=== PATIENT | female | born 1990 | race Caucasian/White ===

== ENCOUNTER → 2023-04-06 08:45 | Outpatient (BNVA) | payer OTHER, SELFPAY | PROVIDERS: PCP Nurse Practitioner Family; Visit Provider Internal Medicine Endocrinology, Diabetes & Metabolism | DX: E10.65 Type 1 diabetes mellitus with hyperglycemia (principal) | CPT/HCPCS: 82947; 83036; 99202 ==

== ENCOUNTER → 2023-04-18 11:01 | Outpatient (BNVA) | payer OTHER, SELFPAY | PROVIDERS: PCP Nurse Practitioner Family; Visit Provider Dietitian, Registered | DX: E10.65 Type 1 diabetes mellitus with hyperglycemia (principal) | CPT/HCPCS: 97802 ==

== ENCOUNTER 2023-05-10 09:00 | Outpatient (AMB) | payer OTHER, SELFPAY ==
--- NOTE | 2023-05-10 09:55 | MHC.AMDMED ---
Intake Intake Visit Reasons: BANDAR Residential Support Specialist Required: No Accompanied by: Mother Allergies hydromorphone Allergy (Unknown, Verified 04/06/23 08:55) Unknown infliximab [From Remicade] Allergy (Unknown, Verified 04/06/23 08:55) Unknown sulfamethoxazole [From Bactrim] Allergy (Unknown, Verified 04/06/23 08:55) Unknown trimethoprim [From Bactrim] Allergy (Unknown, Verified 04/06/23 08:55) Unknown HPI Comprehensive Diabetes Asmnt Most Recent Diabetes Results: No Data to Display [facility] Medical History (Updated 04/06/23 @ 09:13 by Riley Lyon MD) Uncontrolled type 1 diabetes mellitus with hyperglycemia, with long-term current use of insulin Surgical History Hx of section Hx of resection of small bowel Family History Mother History of hypertension Hyperlipidemia Father History of hypertension Assessment & Plan Assessment & Plan (1) Uncontrolled type 1 diabetes mellitus with hyperglycemia, with long-term current use of insulin: Code(s): E10.65 - Type 1 diabetes mellitus with hyperglycemia Plan: Learning objectives: The patient was provided with verbal and written education on the following topics as outlined below. The patient met all learning objectives and was able to verbalize understanding and provide teach back of education topics discussed . The patient was provided with the opportunity to ask questions and all questions were answered. Patient Assessment Assess patient education level/literacy/barriers Patient questions/concerns, patient diagnosed with diabetes 2019, initially diagnosed with type 2 diabetes, started on metformin. Metformin was ineffective later patient diagnosed with BANDAR. patient is interested in obtaining insulin pump, at Education visit with her mother What is Diabetes? Pathophysiology How the body produces and uses insulin Identify type of DM Risk factors Signs of Diabetes Brief overview of Diabetes Management Monitoring blood sugar Following a meal plan Regular exercise Maintaining a healthy weight Taking medication as needed Members of the care team (PCP, RN, MA, RD, CDE, tool or die drawing checker) Blood glucose monitoring When/how often to test Target blood sugar ranges patient using Dexcom G6 to monitor glucose average glucose for the past 2 weeks 284 mg/dL patient above target 92% patient at target 8% patient below target 0% reviewed rules about testing for ketones, ketone instructions given. patient reports she has ketone strips at home but they may be sent message to Dr. Lyon to send prescription for ketone strips Reviewed the basic principles of carbohydrate counting.? Instructed patient on the importance of accurate calculation of the amount of carbs per meal Reviewed how to calculate mealtime bolus with insulin to carb ratio Reviewed how to calculate correction dose with insulin sensitivity factor patient is currently using insulin to carb ratio of 1-15 correction factor 1-60 correcting to 120 mg/dL downloaded and program bolus calc chloe on patient's smart phone Pt able to calculated needed insulin based on estimated carbohydrate content Pt demonstrated at visit how to calculate mealtime insulin bolus and correction bolus. Instructed patient that there may need to be adjustment to insulin to carb ratio and sensitivity factor based on blood glucose trends. Pt will review Carb Counting handout provided by [employer] Patient will fill out food/Carbohydrate/insulin dose log as instructed Patient Response to instructions: Comprehension of Instructions: Fair Readiness to make changes: Contemplation How confident they feel about making changes: Positive Patient Instructions: Ketone instructions DIABETES PROBLEMS HOMECARE INSTRUCTIONS? for High Blood Sugar and When to Test for Ketones Hyperglycemia is the technical term for high blood glucose (blood sugar). High blood sugar happens when the body has too little insulin or when the body can't use insulin properly. What causes hyperglycemia? A number of things can cause hyperglycemia: If you have type 1, you may not have given yourself enough insulin. ? If you have type 2, your body may have enough insulin, but it is not as effective as it should be. You ate more than planned or exercised less than planned. You have stress from an illness, such as a cold or flu. You have other stress, such as family conflicts or school or dating problems. How to lower your blood sugar level. ? Take medications as directed by physician. ? Drink extra water or noncaffeinated, nonsugared drinks to prevented hydration. ? Exercise if you are not sick However, if your blood sugar is above 250 mg/dl, check your urine for ketones. If you have ketones, do not exercise Exercising when ketones are present may make your blood sugar level go even higher. You'll need to work with your doctor to find the safest way for you to lower your blood sugar level. Regularly check blood sugar or urine for sugar and acetone during illness. Diabetic ketoacidosis (DKA) Is serious condition that can lead to diabetic coma (passing out for a long time) or even . When your cells don't get the glucose they need for energy, your body begins to burn fat for energy, which produces ketones. Ketones are chemicals that the body creates when it breaks down fat to use for energy. The body does this when it doesn?t have enough insulin to use glucose, the body?s normal source of energy. When ketones build up in the blood, they make it more acidic. They are a warning sign that your diabetes is out of control or that you are getting sick. Symptoms of Diabetic Ketoacidosis (DKA) ? DKA usually develops slowly. But when vomiting occurs, this life-threatening condition can develop in a few hours. Early symptoms include the following: ? Thirst or a very dry mouth ? Frequent urination ? High blood glucose (blood sugar) levels ? High levels of ketones in the urine ? Then, other symptoms appear: ? Constantly feeling tired ? Dry or flushed skin ? Nausea, vomiting, or abdominal pain ? (Vomiting can be caused by many illnesses, not just ketoacidosis. If vomiting continues for more than 2 hours, contact your health care provider.) ? Difficulty breathing ? Fruity odor on breath ? A hard time paying attention, or confusion When should you test for ketones? It is advisable to check for ketones under the following conditions when: Your blood glucose is higher than 250mg/dl. Feeling nauseated, throwing up, or have pains in your abdominal region. Have a cold or flu. Have general body fatigue. Feel thirsty or have a very dry mouth. Have flushed skin. Have a fruity breath or a hard time breathing. You feel perplexed or in fog. How to Test Urine for Ketones You can detect ketones with a simple urine test using a test strip, similar to a blood testing strip. Ask your health care provider when and how you should test for ketones. Many experts advise to check your urine for ketones when your blood glucose is more than 250 mg/dl. When you are ill (when you have a cold or the flu, for example), check for ketones every 4 to 6 hours. And check every 4 to 6 hours when your blood sugar is more than 240 mg/dl. Also, check for ketones when you have any symptoms of DKA. How to lower your blood sugar level. ? Take medications as directed by physician. ? Drink extra water or noncaffeinated, nonsugared drinks to prevented hydration. ? Exercise if you are not sick However, if your blood sugar is above 250 mg/dl, check your urine for ketones. If you have ketones, do not exercise Exercising when ketones are present may make your blood sugar level go even higher. You'll need to work with your doctor to find the safest way for you to lower your blood sugar level. Regularly check blood sugar or urine for sugar and acetone during illness Coding Level of Care Code Est Pt Level 1 (08836) Diagnoses Uncontrolled type 1 diabetes mellitus with hyperglycemia, with long-term current use of insulin E10.65
== END 2023-05-10 10:08 | disposition home or self-care (01) ==
PROVIDERS: PCP Nurse Practitioner Family; Visit Provider Registered Nurse Diabetes Educator
DX: E10.65 Type 1 diabetes mellitus with hyperglycemia (principal)

== ENCOUNTER → 2023-05-10 09:00 | Outpatient (BNVA) | payer OTHER, SELFPAY | PROVIDERS: PCP Nurse Practitioner Family; Visit Provider Registered Nurse Diabetes Educator | DX: E10.65 Type 1 diabetes mellitus with hyperglycemia (principal) | CPT/HCPCS: 99211 ==

== ENCOUNTER 2023-06-28 10:03 | Outpatient (AMB) | payer OTHER, SELFPAY ==
--- NOTE | 2023-06-28 10:38 | MHC.AMDMED ---
Intake Intake Visit Reasons: 60 min pump ed/confirmed Allergies hydromorphone Allergy (Unknown, Verified 04/06/23 08:55) Unknown infliximab [From Remicade] Allergy (Unknown, Verified 04/06/23 08:55) Unknown sulfamethoxazole [From Bactrim] Allergy (Unknown, Verified 04/06/23 08:55) Unknown trimethoprim [From Bactrim] Allergy (Unknown, Verified 04/06/23 08:55) Unknown HPI Comprehensive Diabetes Asmnt Most Recent Diabetes Results: No Data to Display [facility] Medical History (Updated 04/06/23 @ 09:13 by Riley Lyon MD) Uncontrolled type 1 diabetes mellitus with hyperglycemia, with long-term current use of insulin Surgical History Hx of section Hx of resection of small bowel Family History Mother History of hypertension Hyperlipidemia Father History of hypertension Assessment & Plan Assessment & Plan (1) Uncontrolled type 1 diabetes mellitus with hyperglycemia, with long-term current use of insulin: Code(s): E10.65 - Type 1 diabetes mellitus with hyperglycemia Plan: Pump Assessment: Type of DM: type 1 Dx at age: 29 Previous DKA: Current Insulin Rx: MDI Patient takes insulin as prescribed: yes Patient? checks BG with Dexcom G6 Downloaded meter today? yes Patient? reports glycemic control as: poor Most recent Hgb A1C: 10.1 Frequency of low BG: rarely Low BG treatment: Frequency of high BG:daily Does patient check Ketones? Reviewed ketone testing rules Has pt been on a pump in the past? no Reviewed insulin pump basics today with Patient. Explained pros and cons of insulin pumps. Showed pt various pumps, infusion sets, and cgms currently available. Reviewed need to wear pump 24/7 and need to change infusion set every 3 days. Also stressed importance of frequent BG checks, 4x daily minimum or use pump that is integrated with CGM.? Patient demonstrated motivation for continued insulin pump education and understands the need to complete education prior to starting insulin pump for best outcome. TDD 60 units Instructed patient to increase Tresiba to 30 units daily Decreased insulin to carb ratio from 1-15 to 1-12 Changed correction factor from 1-60 to 1-55 Changes made in patient's bolus calc chloe Patient Instructions: Call for pump training appt. Coding Level of Care Code Est Pt Level 1 (90918) Diagnoses Uncontrolled type 1 diabetes mellitus with hyperglycemia, with long-term current use of insulin E10.65
== END 2023-06-28 10:47 | disposition home or self-care (01) ==
PROVIDERS: PCP Nurse Practitioner Family; Visit Provider Registered Nurse Diabetes Educator
DX: E10.65 Type 1 diabetes mellitus with hyperglycemia (principal)

== ENCOUNTER → 2023-06-28 10:03 | Outpatient (BNVA) | payer OTHER, SELFPAY | PROVIDERS: PCP Nurse Practitioner Family; Visit Provider Registered Nurse Diabetes Educator | DX: Z46.81 Encounter for fitting and adjustment of insulin pump (principal); E10.65 Type 1 diabetes mellitus with hyperglycemia | CPT/HCPCS: 99211 ==

== ENCOUNTER 2023-07-04 09:36 | Outpatient (AMB) | payer OTHER, SELFPAY ==
[2023-07-04 09:37] VITALS: BP 134/72; PULSE 80; BMI 27.2
--- NOTE | 2023-07-04 09:37 | A.OFFVIS_ITS ---
Intake Vital Signs 07/04/23 09:37 Height 5 ft Weight 139 lb 5.314 oz BMI 27.2 BP 134/72 Blood Pressure Location Lt brachial Position Sitting Pulse 80 Pulse Source Pulse Oximeter Intake Visit Reasons: BANDAR/Confirmed Intake Note: Patient present today to follow up on Type 1 Diabetes BANDAR. Last Diabetic Eye exam: 11/2022 Last Podiatry Visit: None Random Glucose: 373 mg/dl HgA1C: 11.4% Motorboat Mechanic Required: No Accompanied by: Mother Allergies hydromorphone Allergy (Unknown, Verified 07/04/23 09:44) Unknown infliximab [From Remicade] Allergy (Unknown, Verified 07/04/23 09:44) Unknown sulfamethoxazole [From Bactrim] Allergy (Unknown, Verified 07/04/23 09:44) Unknown trimethoprim [From Bactrim] Allergy (Unknown, Verified 07/04/23 09:44) Unknown HPI HPI Comments History of Present Illness Details 33 YO F with is seen in consultation fo r T1DM at the request of PCP. Initially diagnosed with T1DM BANDAR in 02/2019 when presented with hyperglycemia . Was initially started on treatment with metformin . Current regimen: Tresiba 30 units Humalog 1:12 before meals Unfortunately, patient just place the Dexcom and is no information in the Dexcom download Most recent A1C: [], [down] from prior of []. Reports low sugars rarely . 1-2 /mo Treats lows with OJ . Checks sugar after to ensure it is rising. Follows the rule of 15's. Family history of autoimmunity . Sister has Graves DX Has eyes checked yearly, last eye exam 11/2022 , no retinopathy. has neuropathy,not sees podiatry. Denies nephropathy, Not on ION/ARB. Has HLD, on statin. Denies history of CAD. Had diabetes education. Diet/Carb counting: yes Denies prior episodes of DKA. Denies prior severe episodes of hypoglycemia requiring help or hospitalization. Labs: [facility] Medical History (Updated 04/06/23 @ 09:13 by Riley Lyon MD) Uncontrolled type 1 diabetes mellitus with hyperglycemia, with long-term current use of insulin Surgical History Hx of section Hx of resection of small bowel Family History Mother History of hypertension Hyperlipidemia Father History of hypertension Physical Exam Vital Signs: Last Vital Signs Pulse 80 07/04/23 09:37 BP 134/72 07/04/23 09:37 BMI result Body Mass Index 27.2 Absence of Cushingoid features. Absence of acromegalic features. Neck exam reveals nl size thyroid about 15 gms. No thyroid nodules palpable. No carotid bruits present. Lungs CTA. Heart S1 S2, Reg R/R. No M/R/ G. Skin exam reveals absence of vitiligo or acanthosis nigricans. Abdominal exam reveals Soft NT/ND with NA BS. No organomegaly present. Neck Other: . Extrem Other: Visual exam of foot performed. No ulcerations or open lesions. No onchomycosis, no callouses.Pulses 2 + distally Sensation intact to monofilament exam. Vibratory sensation sensed is intact with 128 Hz tuning fork Results AMB Hemoglobin A1c AMB Hemoglobin A1c 11.4 % Last Edit by Kimmy Connolly on 07/04/23 09:57 Results Reviewed Results Reviewed: 07/04/23 09:47 Glucose, Whole Blood Routine Laboratory Last Values Glucose (Clinic) 373 mg/dL (60-115) H* 07/04/23 09:47 Assessment & Plan Assessment & Plan (1) Uncontrolled type 1 diabetes mellitus with hyperglycemia, with long-term current use of insulin: Code(s): E10.65 - Type 1 diabetes mellitus with hyperglycemia Plan: Is a 33-year-old white female with reported history of LAD a type 1 management of basal-bolus insulin with glycemic control and no known microvascular or macrovascular complications. Plan is to have the patient bring the Dexcom with the follow-up appointments . Since there is no data points, cannot make any adjustments the insulin regimen. Will obtain basic metabolic panel, liver profile and microalbumin to creatinine ratio. . Patient to proceed to initiate the Omnipod 5 with Dexcom. Will check TSH and free T4 in light of recent weight gain Orders: Orders AMB Hemoglobin A1c Today E10.65 - Type 1 diabetes mellitus with hyperglycemia Free T4 (Free Thyroxine) Today E10.65 - Type 1 diabetes mellitus with hyperglycemia Thyroid Stimulating Hormone Today E10.65 - Type 1 diabetes mellitus with hyperglycemia Coding Level of Care Code Est Pt Level 4 (96564) Diagnoses Uncontrolled type 1 diabetes mellitus with hyperglycemia, with long-term current use of insulin E10.65
[2023-07-04 09:51] LABS: Glucose, Whole Blood 373 mg/dL (60-115)
== END 2023-07-04 10:16 | disposition home or self-care (01) ==
PROVIDERS: PCP Nurse Practitioner Family; Visit Provider Internal Medicine Endocrinology, Diabetes & Metabolism
DX: E10.65 Type 1 diabetes mellitus with hyperglycemia (principal)
CPT/HCPCS: 99214

== ENCOUNTER → 2023-07-04 09:36 | Outpatient (BNVA) | payer OTHER, SELFPAY | PROVIDERS: PCP Nurse Practitioner Family; Visit Provider Internal Medicine Endocrinology, Diabetes & Metabolism | DX: E10.65 Type 1 diabetes mellitus with hyperglycemia (principal); Z79.4 Long term (current) use of insulin | CPT/HCPCS: 82947; 83036; 99212 ==

== ENCOUNTER 2023-08-23 12:56 | Outpatient (AMB) | payer OTHER, SELFPAY ==
--- NOTE | 2023-08-23 14:08 | A.OFFVIS_ITS ---
Intake Intake Visit Reasons: pump trainig Assessment Analyst Required: No Accompanied by: Mother Allergies hydromorphone Allergy (Unknown, Verified 07/04/23 09:44) Unknown infliximab [From Remicade] Allergy (Unknown, Verified 07/04/23 09:44) Unknown sulfamethoxazole [From Bactrim] Allergy (Unknown, Verified 07/04/23 09:44) Unknown trimethoprim [From Bactrim] Allergy (Unknown, Verified 07/04/23 09:44) Unknown HPI Comprehensive Diabetes Asmnt Most Recent Diabetes Results: No Data to Display [facility] Medical History (Updated 04/06/23 @ 09:13 by Riley Lyon MD) Uncontrolled type 1 diabetes mellitus with hyperglycemia, with long-term current use of insulin Surgical History Hx of section Hx of resection of small bowel Family History Mother History of hypertension Hyperlipidemia Father History of hypertension Assessment & Plan Assessment & Plan (1) Uncontrolled type 1 diabetes mellitus with hyperglycemia, with long-term current use of insulin: Code(s): E10.65 - Type 1 diabetes mellitus with hyperglycemia Plan: Patient presents for pump training for Omnipod 5 pump and Dexcom G6 CGM train ing today. The following topics were reviewed today: -Pump therapy basic concepts: Basal/bolus, insulin to carb ratio, correction factor, insulin on board -Device settings: Bluetooth/mobile connection (if applicable), correct date and time, sound volume -CGM settings(if integrated system): CGM graft views and trend arrows, alerts and alarms, Start new sensor ??? High Alert: 400 mg/dl ??? Low Alert: 90 mg/dl ??? Insulin delivery settings Program insulin to carb ratio, correction factor, target blood glucose, suspend or resume insulin delivery, bolus limit and basal limit settings Instructed patient to only use room temperature insulin, how to load cartridge or fill pod, with insulin. Fill tubing and cannula (if applicable) Inserting infusion set or starting pod Troubleshooting after starting new pod or inserting new insulin set: Occlusion, adhesive tape sensitivity, redness Check BG 2 hours after site change Safety information: Importance of a backup plan, for manual injections, proper prescriptions and emergency supplies ketone strips, and rules for testing for ketones Patient was able to insert insulin set today without difficulty. Patient understands the basic concepts of pump therapy, how to give insulin for meals and snacks, how to troubleshoot for hyper and hypoglycemia. Setting verified by [employer] Basal rate(s) (units/hour) : 12 AM to 12 AM 1.0 units / hr Bolus setting Insulin Carbohydrate Ratio (s) 12 AM to 12 AM ? 1:12 Correction Factor / Sensitivity Factor 12 AM to 12 AM ??1:55 Active Insulin Time:? 4 hours Target(s): 12 AM to 12 AM ? 150 mg/dL correct above 150 mg/dL Patient will follow up with CDE as instructed Patient will contact CDE with questions or concerns, patient given IT number to support in any technical issues related to insulin pump Patient Instructions: patient will follow-up with supply cataloguer in 1 week Coding Level of Care Code Est Pt Level 1 (85010) Diagnoses Uncontrolled type 1 diabetes mellitus with hyperglycemia, with long-term current use of insulin E10.65
== END 2023-08-23 14:14 | disposition home or self-care (01) ==
PROVIDERS: PCP Nurse Practitioner Family; Visit Provider Registered Nurse Diabetes Educator
DX: E10.65 Type 1 diabetes mellitus with hyperglycemia (principal)

== ENCOUNTER → 2023-08-23 12:56 | Outpatient (BNVA) | payer OTHER, SELFPAY | PROVIDERS: PCP Nurse Practitioner Family; Visit Provider Registered Nurse Diabetes Educator | DX: Z46.81 Encounter for fitting and adjustment of insulin pump (principal); Z71.89 Other specified counseling; E10.65 Type 1 diabetes mellitus with hyperglycemia | CPT/HCPCS: 99211 ==

== ENCOUNTER 2023-09-18 15:31 | Outpatient (AMB) | payer OTHER, SELFPAY ==
--- NOTE | 2023-09-18 15:50 | MHC.AMDMED ---
Intake Intake Visit Reasons: 30/ Contact Manager Required: No Accompanied by: Self / Same As Patient Allergies hydromorphone Allergy (Unknown, Verified 07/04/23 09:44) Unknown infliximab [From Remicade] Allergy (Unknown, Verified 07/04/23 09:44) Unknown sulfamethoxazole [From Bactrim] Allergy (Unknown, Verified 07/04/23 09:44) Unknown trimethoprim [From Bactrim] Allergy (Unknown, Verified 07/04/23 09:44) Unknown HPI Comprehensive Diabetes Asmnt Most Recent Diabetes Results: No Data to Display [facility] Medical History (Updated 04/06/23 @ 09:13 by Riley Lyon MD) Uncontrolled type 1 diabetes mellitus with hyperglycemia, with long-term current use of insulin Surgical History Hx of section Hx of resection of small bowel Family History Mother History of hypertension Hyperlipidemia Father History of hypertension Assessment & Plan Assessment & Plan (1) Uncontrolled type 1 diabetes mellitus with hyperglycemia, with long-term current use of insulin: Code(s): E10.65 - Type 1 diabetes mellitus with hyperglycemia Plan: Patient presents for pump training for Omnipod 5 pump and Dexcom G6 CGM training today. The following topics were reviewed today: - insulin to carb ratio - target goal verses correction threshold ??? High Alert: 400 mg/dl ??? Low Alert: 90 mg/dl CGM data ??? patient above target 74% patient at target 26% patient below target 0% average glucose for the past 2 weeks 244 mg/dL patient in auto mode 72% manual mode 28% patient has been experiencing postprandial increased excursions after breakfast, patient's glucose levels and stays elevated throughout the day see changes to insulin to carb ratio at breakfast Troubleshooting after starting new pod or inserting new insulin set: Occlusion, adhesive tape sensitivity, redness Check BG 2 hours after site change Patient understands the basic concepts of pump therapy, how to give insulin for meals and snacks, how to troubleshoot for hyper and hypoglycemia. Setting verified by [employer] Basal rate(s) (units/hour) : 12 AM to 12 AM 1.0 units / hr Bolus setting Insulin Carbohydrate Ratio (s) 12 AM to 12 AM ? 1:12 New 12 AM to 6 AM 1:12 New 6 AM to 10 AM 1:10 New 10 AM to 12 AM 1:12 Correction Factor / Sensitivity Factor 12 AM to 12 AM ??1:55 Active Insulin Time:? 4 hours Target(s): 12 AM to 12 AM ? 150 mg/dL New 12 AM to 12 AM 130 mg/dL correct above 150 mg/dL Coding Level of Care Code Est Pt Level 1 (98841) Diagnoses Uncontrolled type 1 diabetes mellitus with hyperglycemia, with long-term current use of insulin E10.65
== END 2023-09-18 15:52 | disposition home or self-care (01) ==
PROVIDERS: PCP Nurse Practitioner Family; Visit Provider Registered Nurse Diabetes Educator
DX: E10.65 Type 1 diabetes mellitus with hyperglycemia (principal)

== ENCOUNTER → 2023-09-18 15:31 | Outpatient (BNVA) | payer OTHER, SELFPAY | PROVIDERS: PCP Nurse Practitioner Family; Visit Provider Registered Nurse Diabetes Educator | DX: Z46.81 Encounter for fitting and adjustment of insulin pump (principal); E10.65 Type 1 diabetes mellitus with hyperglycemia; Z79.4 Long term (current) use of insulin | CPT/HCPCS: 99211 ==

== ENCOUNTER 2023-10-09 12:45 | Outpatient (AMB) | payer OTHER, SELFPAY ==
--- NOTE | 2023-10-09 12:48 | MHC.OFFVIS ---
Intake Vital Signs 10/09/23 12:52 Height 5 ft Weight 141 lb 8.588 oz BMI 27.6 BP 124/84 Blood Pressure Location Rt brachial Position Sitting Pulse 97 Pulse Source Palpation Intake Visit Reasons: DM-CONFIRMED Intake Note: Patient present today to follow up on Type 1 BANDAR. Patient receives Omnipod 5 G6 supplies through: Pharmacy Patient receives DME through: Pharmacy Last Diabetic Eye exam: approx 6 months Last Podiatry Visit: Does not see a Cardiograph Operator, patient is requesting referral. Random Glucose: 215 mg/dl HgA1C: 10.3% Mason Liner Required: No Accompanied by: Self / Same As Patient Allergies hydromorphone Allergy (Unknown, Verified 10/09/23 12:53) Unknown infliximab [From Remicade] Allergy (Unknown, Verified 10/09/23 12:53) Unknown sulfamethoxazole [From Bactrim] Allergy (Unknown, Verified 10/09/23 12:53) Unknown trimethoprim [From Bactrim] Allergy (Unknown, Verified 10/09/23 12:53) Unknown Medication List - Last Reconciled 10/09/23 by Riley Lyon MD acetone (urine) test (Ketone Urine Test strips) As directed albuterol sulfate 90 mcg/actuation (Ventolin HFA) 1 puff inhalation QID PRN atorvastatin 10 mg PO DAILY blood sugar diagnostic (FreeStyle Lite Strips) As directed blood-glucose sensor (Dexcom G6 Sensor device) As directed blood-glucose transmitter (Dexcom G6 Transmitter device) As directed buprenorphine-naloxone 8-2 mg (Suboxone) 10 mg sublingual DAILY buspirone 15 mg PO TID duloxetine 30 mg PO DAILY duloxetine 60 mg PO DAILY ferrous sulfate 325 mg PO DAILY fluconazole 150 mg PO QWEEK glucagon 3 mg/actuation (Baqsimi) 3 mg intranasal insulin degludec (Tresiba FlexTouch U-100 insulin) units subcut insulin lispro (Humalog U-100 Insulin) Infuse up to 60 units today via insulin pump subcutaneously; insulin pump cart,auto,BT-cntr (Omnipod 5 G6 Intro Kit (Gen 5) subcutaneous cartridge with controller) As directed insulin pump cart,automated,BT (Omnipod 5 G6 Pods (Gen 5) subcutaneous cartridge) As directed change every 72 hours insulin syringe-needle U-100 (BD Insulin Syringe Ultra-Fine) As directed lancets (FreeStyle Lancets) As directed lidocaine 5% topical TID PRN loratadine 10 mg PO DAILY nicotine 1 patch topical DAILY norethindrone (contraceptive) 0.35 mg PO DAILY omeprazole 40 mg PO ondansetron HCl 4 mg PO Q8H PRN pen needle, diabetic (BD Ultra-Fine Short Pen Needle) As directed pregabalin 200 mg PO BID sumatriptan succinate 0 mg PO HPI HPI Comments History of Present Illness Details 33 YO F with is seen in consultation for T1DM at the request of PCP. Initially diagnosed with T1DM BANDAR in 02/2019 when presented with hyperglycemia . Was initially started on treatment with metformin . Current regimen: Omnipod 5 pump Basal rate(s) (units/hour) : 12 AM to 12 AM 1.0 units / hr Bolus setting Insulin Carbohydrate Ratio (s) 12 AM to 12 AM ? 1:12 New 12 AM to 6 AM 1:12 New 6 AM to 10 AM 1:10 New 10 AM to 12 AM 1:12 Correction Factor / Sensitivity Factor 12 AM to 12 AM ??1:55 Active Insulin Time:? 4 hours Target(s): 12 AM to 12 AM ? 150 mg/dL New 12 AM to 12 AM 130 mg/dL correct above 150 mg/dL Total daily dose of insulin is 56.8 units with 70% basal and 30% bolus. She is 76% in the automated mode a 24% manual. Total cause per day is 173.6 Dexcom download shows she is wearing the sensor 93% of the time. Average glucose is 233 with standard deviation of 82 and G mi of 8.9%. 31% range with 68% hyperglycemia and no hypoglycemia. Pattern shows elevated glucoses throughout the day with elevation in glucose after breakfast Most recent A1C: [], [down] from prior of []. Reports low sugars rarely Treats lows with OJ . Checks sugar after to ensure it is rising. Follows the rule of 15's. Family history of autoimmunity . Sister has Graves DX Has eyes checked yearly, last eye exam 11/2022 , no retinopathy. has neuropathy,not sees podiatry. Denies nephropathy, Not on ION/ARB. Has HLD, on statin. Denies history of CAD. Had diabetes education. Diet/Carb counting: yes Denies prior episodes of DKA. Denies prior severe episodes of hypoglycemia requiring help or hospitalization. Labs: [facility] Medical History (Updated 04/06/23 @ 09:13 by Riley Lyon MD) Uncontrolled type 1 diabetes mellitus with hyperglycemia, with long-term current use of insulin Surgical History Hx of section Hx of resection of small bowel Family History Mother History of hypertension Hyperlipidemia Father History of hypertension Physical Exam Vital Signs: Last Vital Signs Pulse 97 10/09/23 12:52 BP 124/84 10/09/23 12:52 BMI result Body Mass Index 27.6 Absence of Cushingoid features. Absence of acromegalic features. Neck exam reveals nl size thyroid about 15 gms. No thyroid nodules palpable. No carotid bruits present. Lungs CTA. Heart S1 S2, Reg R/R. No M/R/ G. Skin exam reveals absence of vitiligo or acanthosis nigricans. Abdominal exam reveals Soft NT/ND with NA BS. No organomegaly present. Neck Other: . Extrem Other: Visual exam of foot performed. No ulcerations or open lesions. No onchomycosis, no callouses.Pulses 2 + distally Sensation intact to monofilament exam. Vibratory sensation sensed is intact with 128 Hz tuning fork Results AMB Hemoglobin A1c AMB Hemoglobin A1c 10.3 % Last Edit by DAYSI Mcdonald on 10/09/23 13:11 Results Reviewed Results Reviewed: Laboratory Last Values Glucose (Clinic) 215 mg/dL (60-115) H 10/09/23 13:00 Assessment & Plan Assessment & Plan (1) Uncontrolled type 1 diabetes mellitus with hyperglycemia, with long-term current use of insulin: Code(s): E10.65 - Type 1 diabetes mellitus with hyperglycemia Plan: Is a 33-year-old white female with reported history of LAD a type 1 management of basal-bolus insulin with poor glycemic control and no known microvascular or macrovascular complications. Plan is to tighten the insulin: Carb at 10:00 to 1:10. May also need to tighten insulin: Carbohydrate at 06:00 to 1:9 and change goal glucose. However, will wait until patient sees ict educator make those latter changes Will have patient follow up with ict educator. Will have patient go for basic metabolic panel, lipid profile, microalbumin to creatinine ratio, TSH and free T4 Orders: Orders AMB Hemoglobin A1c Today E10.65 - Type 1 diabetes mellitus with hyperglycemia Coding Level of Care Code Est Pt Level 4 (29563) Diagnoses Uncontrolled type 1 diabetes mellitus with hyperglycemia, with long-term current use of insulin E10.65
[2023-10-09 12:52] VITALS: BP 124/84; PULSE 97; BMI 27.6
[2023-10-09 13:06] LABS: Glucose, Whole Blood 215 mg/dL (60-115)
== END 2023-10-09 13:20 | disposition home or self-care (01) ==
PROVIDERS: PCP Nurse Practitioner Family; Visit Provider Internal Medicine Endocrinology, Diabetes & Metabolism
DX: E10.65 Type 1 diabetes mellitus with hyperglycemia (principal)
CPT/HCPCS: 99214

== ENCOUNTER → 2023-10-09 12:45 | Outpatient (BNVA) | payer OTHER, SELFPAY | PROVIDERS: PCP Nurse Practitioner Family; Visit Provider Internal Medicine Endocrinology, Diabetes & Metabolism | DX: Z46.81 Encounter for fitting and adjustment of insulin pump (principal); E10.65 Type 1 diabetes mellitus with hyperglycemia; Z79.4 Long term (current) use of insulin | CPT/HCPCS: 82947; 83036; 99212 ==

== ENCOUNTER 2023-12-18 09:24 | Outpatient (AMB) | payer OTHER, SELFPAY ==
--- NOTE | 2023-12-18 09:31 | MHC.AMDMED ---
Intake Intake Visit Reasons: 30 min-confirmed Gutter Mouth Cutter Required: No Accompanied by: Self / Same As Patient Allergies hydromorphone Allergy (Unknown, Verified 10/09/23 12:53) Unknown infliximab [From Remicade] Allergy (Unknown, Verified 10/09/23 12:53) Unknown sulfamethoxazole [From Bactrim] Allergy (Unknown, Verified 10/09/23 12:53) Unknown trimethoprim [From Bactrim] Allergy (Unknown, Verified 10/09/23 12:53) Unknown HPI Comprehensive Diabetes Asmnt Most Recent Diabetes Results: No Data to Display [facility] Medical History (Updated 04/06/23 @ 09:13 by Riley Lyon MD) Uncontrolled type 1 diabetes mellitus with hyperglycemia, with long-term current use of insulin Surgical History Hx of section Hx of resection of small bowel Family History Mother History of hypertension Hyperlipidemia Father History of hypertension Assessment & Plan Assessment & Plan (1) Uncontrolled type 1 diabetes mellitus with hyperglycemia, with long-term current use of insulin: Code(s): E10.65 - Type 1 diabetes mellitus with hyperglycemia Plan: Patient presents for pump training for Omnipod 5 pump and Dexcom G6 CGM training today. The following topics were reviewed today: - insulin to carb ratio - target goal verses correction threshold ??? High Alert: 400 mg/dl ??? Low Alert: 90 mg/dl CGM data ??? patient above target 60% patient at target 40% patient below target 0% average glucose for the past 2 weeks 211 mg/dL patient in auto mode 94% manual mode 6% Although patient's glucose control has improved patient is still ranging above target. Patient also reports that on November 30 while at work her pods had and she did not have insulin, to start new pods with the time she got home approximately 4 hours later she was experiencing chest pain and nausea. Patient was taken to [facility] ED by EMS where she was told she was in DKA. Reviewed with patient the importance always having active Omnipod, she is no longer using long-acting insulin so this puts her at greater risk for DKA. Patient reports she does have an ketone strips at home and is now checking for ketones when glucose is elevated. Patient will be seeing Dr. Lyon in January 2024, patient did not bring PDM to today's visit but instructed patient to change glucose targets 110 for target range, 120 mg/dL for correction threshold Troubleshooting after starting new pod or inserting new insulin set: Occlusion, adhesive tape sensitivity, redness Check BG 2 hours after site change Patient understands the basic concepts of pump therapy, how to give insulin for meals and snacks, how to troubleshoot for hyper and hypoglycemia. Setting verified by [facility] Basal rate(s) (units/hour) : 12 AM to 12 AM 1.0 units / hr Bolus setting Insulin Carbohydrate Ratio (s) 12 AM to 6 AM 1:12 6 AM to 10 AM 1:10 10 AM to 12 AM 1:10 Correction Factor / Sensitivity Factor 12 AM to 12 AM ??1:55 Active Insulin Time:? 4 hours Target(s): 12 AM to 12 AM ? 130 mg/dL New 12 AM to 12 AM 110mg/dL correct above 120 mg/dL Patient Instructions: DIABETES PROBLEMS [facility] INSTRUCTIONS? for High Blood Sugar and When to Test for Ketones Hyperglycemia is the technical term for high blood glucose (blood sugar). High blood sugar happens when the body has too little insulin or when the body can't use insulin properly. What causes hyperglycemia? A number of things can cause hyperglycemia: If you have type 1, you may not have given yourself enough insulin. ? If you have type 2, your body may have enough insulin, but it is not as effective as it should be. You ate more than planned or exercised less than planned. You have stress from an illness, such as a cold or flu. You have other stress, such as family conflicts or school or dating problems. How to lower your blood sugar level. ? Take medications as directed by physician. ? Drink extra water or noncaffeinated, nonsugared drinks to prevented hydration. ? Exercise if you are not sick However, if your blood sugar is above 250 mg/dl, check your urine for ketones. If you have ketones, do not exercise Exercising when ketones are present may make your blood sugar level go even higher. You'll need to work with your doctor to find the safest way for you to lower your blood sugar level. Regularly check blood sugar or urine for sugar and acetone during illness. Diabetic ketoacidosis (DKA) Is serious condition that can lead to diabetic coma (passing out for a long time) or even . When your cells don't get the glucose they need for energy, your body begins to burn fat for energy, which produces ketones. Ketones are chemicals that the body creates when it breaks down fat to use for energy. The body does this when it doesn?t have enough insulin to use glucose, the body?s normal source of energy. When ketones build up in the blood, they make it more acidic. They are a warning sign that your diabetes is out of control or that you are getting sick. Symptoms of Diabetic Ketoacidosis (DKA) ? DKA usually develops slowly. But when vomiting occurs, this life-threatening condition can develop in a few hours. Early symptoms include the following: ? Thirst or a very dry mouth ? Frequent urination ? High blood glucose (blood sugar) levels ? High levels of ketones in the urine ? Then, other symptoms appear: ? Constantly feeling tired ? Dry or flushed skin ? Nausea, vomiting, or abdominal pain ? (Vomiting can be caused by many illnesses, not just ketoacidosis. If vomiting continues for more than 2 hours, contact your health care provider.) ? Difficulty breathing ? Fruity odor on breath ? A hard time paying attention, or confusion When should you test for ketones? It is advisable to check for ketones under the following conditions when: Your blood glucose is higher than 250mg/dl. Feeling nauseated, throwing up, or have pains in your abdominal region. Have a cold or flu. Have general body fatigue. Feel thirsty or have a very dry mouth. Have flushed skin. Have a fruity breath or a hard time breathing. You feel perplexed or in fog. How to Test Urine for Ketones You can detect ketones with a simple urine test using a test strip, similar to a blood testing strip. Ask your health care provider when and how you should test for ketones. Many experts advise to check your urine for ketones when your blood glucose is more than 250 mg/dl. When you are ill (when you have a cold or the flu, for example), check for ketones every 4 to 6 hours. And check every 4 to 6 hours when your blood sugar is more than 250 mg/dl. Also, check for ketones when you have any symptoms of DKA. How to lower your blood sugar level. ? Take medications as directed by physician. ? Drink extra water or noncaffeinated, nonsugared drinks to prevented hydration. ? Exercise if you are not sick However, if your blood sugar is above 250 mg/dl, check your urine for ketones. If you have ketones, do not exercise Exercising when ketones are present may make your blood sugar level go even higher. You'll need to work with your doctor to find the safest way for you to lower your blood sugar level. Regularly check blood sugar or urine for sugar and acetone during illness Patient will follow-up with Diabetes Education nurse in 2 months Coding Level of Care Code Est Pt Level 1 (11100) Diagnoses Uncontrolled type 1 diabetes mellitus with hyperglycemia, with long-term current use of insulin E10.65
== END 2023-12-18 09:51 | disposition home or self-care (01) ==
PROVIDERS: PCP Nurse Practitioner Family; Visit Provider Registered Nurse Diabetes Educator
DX: E10.65 Type 1 diabetes mellitus with hyperglycemia (principal)

== ENCOUNTER → 2023-12-18 09:24 | Outpatient (BNVA) | payer OTHER, SELFPAY | PROVIDERS: PCP Nurse Practitioner Family; Visit Provider Registered Nurse Diabetes Educator | DX: Z46.81 Encounter for fitting and adjustment of insulin pump (principal); E10.65 Type 1 diabetes mellitus with hyperglycemia; Z79.4 Long term (current) use of insulin | CPT/HCPCS: 99211 ==

== ENCOUNTER 2024-01-15 07:13 | Outpatient (REF) | payer OTHER, SELFPAY ==
[2024-01-15 13:23] LABS: Anion Gap 10 (12-20); Blood Urea Nitrogen 9 mg/dL (9-16); Calcium 8.9 mg/dL (8.4-10.2); Carbon Dioxide 26 mmol/L (22-29); Chloride 105 mmol/L (96-108); Cholesterol 179 mg/dL (<200); Estimated Glomerular Filt Rate > 60; Glucose Random 198 mg/dL (60-115); HDL Cholesterol 31 mg/dL (>40); LDL Cholesterol Calculated 107 mg/dL (<100); Potassium 4.1 mmol/L (3.3-5.1); Sodium 137 mmol/L (135-145); Triglycerides 209 mg/dL (<150)
[2024-01-15 13:39] LABS: Thyroid Stimulating Hormone 1.32 uIU/mL (0.32-4.0)
[2024-01-15 14:00] LABS: Creatinine Urine 123.19 mg/dL; Microalbum/Creatinine Ratio Ur 11.3 ug/mg cr (<30)
== END 2024-01-15 07:14 | disposition home or self-care (01) ==
LOC: HO.HMGCLDS 07:13
PROVIDERS: PCP Internal Medicine; Visit Provider Internal Medicine Endocrinology, Diabetes & Metabolism
DX: E10.65 Type 1 diabetes mellitus with hyperglycemia (principal); Z79.4 Long term (current) use of insulin; Z79.899 Other long term (current) drug therapy
CPT/HCPCS: 36415; 80048; 80061; 82043; 82570; 82947; 83036; 84439; 84443; 99212

== ENCOUNTER 2024-01-15 12:45 | Outpatient (AMB) | payer OTHER, SELFPAY ==
[2024-01-15 12:58] VITALS: BP 116/70; PULSE 80; BMI 26.6
--- NOTE | 2024-01-15 12:58 | A.OFFVIS_ITS ---
Intake Vital Signs 01/15/24 12:58 Height 5 ft Weight 136 lb 7.458 oz BMI 26.6 BP 116/70 Blood Pressure Location Lt brachial Position Sitting Pulse 80 Pulse Source Pulse Oximeter Intake Visit Reasons: f/u Type 1 DM-confirmed Intake Note: Patient present today to follow up on Type 1 Diabetes Mellitus. Patient receives DME supplies through: Pharmacy Patient receives insulin pump supplies through: Pharmacy Last Diabetic Eye exam: 06/2023 Last Podiatry Visit: 06/2023 Random Glucose: 184 mg/dl HgA1C: 8.3% Manager Management Required: No Accompanied by: Self / Same As Patient Allergies hydromorphone Allergy (Unknown, Verified 01/15/24 13:03) Unknown infliximab [From Remicade] Allergy (Unknown, Verified 01/15/24 13:03) Unknown sulfamethoxazole [From Bactrim] Allergy (Unknown, Verified 01/15/24 13:03) Unknown trimethoprim [From Bactrim] Allergy (Unknown, Verified 01/15/24 13:03) Unknown Medication List - Last Reconciled 01/15/24 by Riley Lyon MD acetone (urine) test (Ketone Urine Test strips) As directed albuterol sulfate 90 mcg/actuation (Ventolin HFA) 1 puff inhalation QID PRN atorvastatin 10 mg PO DAILY blood sugar diagnostic (FreeStyle Lite Strips) As directed blood-glucose sensor (Dexcom G6 Sensor device) As directed blood-glucose transmitter (Dexcom G6 Transmitter device) As directed buprenorphine-naloxone 8-2 mg (Suboxone) 10 mg sublingual DAILY buspirone 15 mg PO TID duloxetine 30 mg PO DAILY duloxetine 60 mg PO DAILY ferrous sulfate 325 mg PO DAILY fluconazole 150 mg PO QWEEK glucagon 3 mg/actuation (Baqsimi) 3 mg intranasal insulin degludec (Tresiba FlexTouch U-100 insulin) units subcut insulin lispro (Humalog U-100 Insulin) Infuse up to 60 units today via insulin pump subcutaneously; insulin pump cart,auto,BT-cntr (Omnipod 5 G6 Intro Kit (Gen 5) subcutaneous cartridge with controller) As directed insulin pump cart,automated,BT (Omnipod 5 G6 Pods (Gen 5) subcutaneous cartridge) As directed change every 72 hours insulin syringe-needle U-100 (BD Insulin Syringe Ultra-Fine) As directed lancets (FreeStyle Lancets) As directed lidocaine 5% topical TID PRN loratadine 10 mg PO DAILY nicotine 1 patch topical DAILY norethindrone (contraceptive) 0.35 mg PO DAILY omeprazole 40 mg PO ondansetron HCl 4 mg PO Q8H PRN pen needle, diabetic (BD Ultra-Fine Short Pen Needle) As directed pregabalin 200 mg PO BID sumatriptan succinate 0 mg PO HPI HPI Comments History of Present Illness Details 33 YO F with is seen in consultation fo r T1DM at the request of PCP. Initially diagnosed with T1DM BANDAR in 02/2019 when presented with hyperglycemia . Was initially started on treatment with metformin . Current regimen: Omnipod 5 pump Basal rate(s) (units/hour) : 12 AM to 12 AM 1.0 units / hr Bolus setting Insulin Carbohydrate Ratio (s) 12 AM to 6 AM 1:12 6 AM to 10 AM 1:10 10 AM to 12 AM 1:10 Correction Factor / Sensitivity Factor 12 AM to 12 AM ??1:55 Active Insulin Time:? 4 hours Target(s): 12 AM to 12 AM ? 130 mg/dL New 12 AM to 12 AM 110mg/dL correct above 120 mg/dL Patient Instructions: Total daily dose of insulin is 43.5 units with 81% basal and 19% bolus. She is % in the automated mode 94 % manual. Total carbs per day is 93.8 Dexcom download shows she is wearing the sensor 93% of the time. Average glucose is 182 with standard deviation of 56 and G mi of 7.7%. 53% range with 46% hyperglycemia and <1 % hypoglycemia. Pattern shows elevated glucoses e after breakfast Most recent A1C: [], [down] from prior of []. Reports low sugars rarely Treats lows with OJ . Checks sugar after to ensure it is rising. Follows the rule of 15's. Family history of autoimmunity . Sister has Graves DX Has eyes checked yearly, last eye exam 07/2023 , no retinopathy. has neuropathy,not sees podiatry. Denies nephropathy, Not on ION/ARB. Has HLD, on statin. Denies history of CAD. Had diabetes education. Diet/Carb counting: yes Denies prior episodes of DKA. Denies prior severe episodes of hypoglycemia requiring help or hospitalization. Labs: [facility] Medical History (Updated 04/06/23 @ 09:13 by Riley Lyon MD) Uncontrolled type 1 diabetes mellitus with hyperglycemia, with long-term current use of insulin Surgical History Hx of section Hx of resection of small bowel Family History Mother History of hypertension Hyperlipidemia Father History of hypertension Physical Exam Vital Signs: Last Vital Signs Pulse 80 01/15/24 12:58 BP 116/70 01/15/24 12:58 BMI result Body Mass Index 26.6 Absence of Cushingoid features. Absence of acromegalic features. Neck exam reveals nl size thyroid about 15 gms. No thyroid nodules palpable. No carotid bruits present. Lungs CTA. Heart S1 S2, Reg R/R. No M/R/ G. Skin exam reveals absence of vitiligo or acanthosis nigricans. Abdominal exam reveals Soft NT/ND with NA BS. No organomegaly present. Neck Other: . Extrem Other: Visual exam of foot performed. No ulcerations or open lesions. No onchomycosis, no callouses.Pulses 2 + distally Sensation intact to monofilament exam. Vibratory sensation sensed is intact with 128 Hz tuning fork Results AMB Hemoglobin A1c AMB Hemoglobin A1c 8.3 % Last Edit by DAYSI Douglas on 01/15/24 13:18 Results Reviewed Results Reviewed: Laboratory Last Values Glucose (Clinic) 184 mg/dL (60-115) H 01/15/24 13:05 Assessment & Plan Assessment & Plan (1) Uncontrolled type 1 diabetes mellitus with hyperglycemia, with long-term current use of insulin: Code(s): E10.65 - Type 1 diabetes mellitus with hyperglycemia Plan: Is a 33-year-old white female with reported history of LAD a type 1 management of basal-bolus insulin with poor glycemic control and no known microvascular or macrovascular complications. Plan is to tighten insulin: carbohydrate to 1:9 at 6 AM Will check basic metabolic panel, lipid profile, microalbumin to creatinine ratio, TSH and free T4 when available Orders: Orders AMB Hemoglobin A1c Today E10.65 - Type 1 diabetes mellitus with hyperglycemia, Z13.9 - Encounter for screening, unspecified Coding Level of Care Code Est Pt Level 4 (98833) Diagnoses Uncontrolled type 1 diabetes mellitus with hyperglycemia, with long-term current use of insulin E10.65
[2024-01-15 13:09] LABS: Glucose, Whole Blood 184 mg/dL (60-115)
== END 2024-01-15 13:21 | disposition home or self-care (01) ==
PROVIDERS: PCP Nurse Practitioner Family; Visit Provider Internal Medicine Endocrinology, Diabetes & Metabolism
DX: Z13.9 Encounter for screening, unspecified (principal); E10.65 Type 1 diabetes mellitus with hyperglycemia
CPT/HCPCS: 99214

== ENCOUNTER 2024-02-18 10:03 | Outpatient (AMB) | payer OTHER, SELFPAY ==
--- NOTE | 2024-02-18 10:23 | MHC.AMDMED ---
Intake Intake Visit Reasons: DM 30 min Box Cutter Required: No Accompanied by: Self / Same As Patient Allergies hydromorphone Allergy (Unknown, Verified 01/15/24 13:03) Unknown infliximab [From Remicade] Allergy (Unknown, Verified 01/15/24 13:03) Unknown sulfamethoxazole [From Bactrim] Allergy (Unknown, Verified 01/15/24 13:03) Unknown trimethoprim [From Bactrim] Allergy (Unknown, Verified 01/15/24 13:03) Unknown HPI Comprehensive Diabetes Asmnt Most Recent Diabetes Results: Microalb/Creat Ratio 11.3 ug/mg cr (<30) 01/15/24 Cholesterol 179 mg/dL (<200) 01/15/24 HDL Cholesterol 31 mg/dL (>40) L 01/15/24 Triglycerides 209 mg/dL (<150) H 01/15/24 Creatinine 0.59 mg/dL (0.5-1.4) 01/15/24 Blood Urea Nitrogen 9 mg/dL (9-16) 01/15/24 Sodium 137 mmol/L (135-145) 01/15/24 Potassium 4.1 mmol/L (3.3-5.1) 01/15/24 Chloride 105 mmol/L (96-108) 01/15/24 Carbon Dioxide 26 mmol/L (22-29) 01/15/24 Calcium 8.9 mg/dL (8.4-10.2) 01/15/24 [facility] Medical History (Updated 04/06/23 @ 09:13 by Riley Lyon MD) Uncontrolled type 1 diabetes mellitus with hyperglycemia, with long-term current use of insulin Surgical History Hx of section Hx of resection of small bowel Family History Mother History of hypertension Hyperlipidemia Father History of hypertension Assessment & Plan Assessment & Plan (1) Uncontrolled type 1 diabetes mellitus with hyperglycemia, with long-term current use of insulin: Code(s): E10.65 - Type 1 diabetes mellitus with hyperglycemia Plan: Patient presents for pump training for Omnipod 5 pump and Dexcom G6 CGM training today. The following topics were reviewed today: - insulin to carb ratio - target goal verses correction threshold ??? High Alert: 400 mg/dl ??? Low Alert: 90 mg/dl CGM data ??? patient above target 51% patient at target 49% patient below target 0% average glucose for the past 2 weeks 192 mg/dL patient in auto mode 87% manual mode 13% Pt's A1c went down from 10% over 2022, to 8.3 %, in December 2023 Pt having postprandial hypers after breakfast. adjusted I:CHO and correction threshold Troubleshooting after starting new pod or inserting new insulin set: Occlusion, adhesive tape sensitivity, redness Check BG 2 hours after site change Patient understands the basic concepts of pump therapy, how to give insulin for meals and snacks, how to troubleshoot for hyper and hypoglycemia. Setting verified by [facility] Basal rate(s) (units/hour) : 12 AM to 12 AM 1.0 units / hr Bolus setting Insulin Carbohydrate Ratio (s) 12 AM to 6 AM 1:12 New 6 AM to 12 PM 1:8 12:AM to 12 AM 1:9 Correction Factor / Sensitivity Factor 12 AM to 12 AM ??1:55 Active Insulin Time:? 4 hours Target(s): 12 AM to 12 AM 110mg/dL New correct above 110 mg/dL Coding Level of Care Code Est Pt Level 1 (03789) Diagnoses Uncontrolled type 1 diabetes mellitus with hyperglycemia, with long-term current use of insulin E10.65
== END 2024-02-18 10:26 | disposition home or self-care (01) ==
PROVIDERS: PCP Nurse Practitioner Family; Visit Provider Registered Nurse Diabetes Educator
DX: E10.65 Type 1 diabetes mellitus with hyperglycemia (principal)

== ENCOUNTER → 2024-02-18 10:03 | Outpatient (BNVA) | payer OTHER, SELFPAY | PROVIDERS: PCP Nurse Practitioner Family; Visit Provider Registered Nurse Diabetes Educator | DX: E10.65 Type 1 diabetes mellitus with hyperglycemia (principal); Z96.41 Presence of insulin pump (external) (internal); Z79.4 Long term (current) use of insulin; Z46.81 Encounter for fitting and adjustment of insulin pump | CPT/HCPCS: 99211 ==

== ENCOUNTER 2024-05-20 09:47 | Outpatient (AMB) | payer OTHER, SELFPAY ==
--- NOTE | 2024-05-20 10:16 | A.OFFVIS_ITS ---
Intake Intake Visit Reasons: DM Heat Treater Head Required: No Accompanied by: Self / Same As Patient Allergies hydromorphone Allergy (Unknown, Verified 01/15/24 13:03) Unknown infliximab [From Remicade] Allergy (Unknown, Verified 01/15/24 13:03) Unknown sulfamethoxazole [From Bactrim] Allergy (Unknown, Verified 01/15/24 13:03) Unknown trimethoprim [From Bactrim] Allergy (Unknown, Verified 01/15/24 13:03) Unknown HPI Comprehensive Diabetes Asmnt Most Recent Diabetes Results: Microalb/Creat Ratio 11.3 ug/mg cr (<30) 01/15/24 Cholesterol 179 mg/dL (<200) 01/15/24 HDL Cholesterol 31 mg/dL (>40) L 01/15/24 Triglycerides 209 mg/dL (<150) H 01/15/24 Creatinine 0.59 mg/dL (0.5-1.4) 01/15/24 Blood Urea Nitrogen 9 mg/dL (9-16) 01/15/24 Sodium 137 mmol/L (135-145) 01/15/24 Potassium 4.1 mmol/L (3.3-5.1) 01/15/24 Chloride 105 mmol/L (96-108) 01/15/24 Carbon Dioxide 26 mmol/L (22-29) 01/15/24 Calcium 8.9 mg/dL (8.4-10.2) 01/15/24 [facility] Medical History (Updated 04/06/23 @ 09:13 by Riley Lyon MD) Uncontrolled type 1 diabetes mellitus with hyperglycemia, with long-term current use of insulin Surgical History Hx of section Hx of resection of small bowel Family History Mother History of hypertension Hyperlipidemia Father History of hypertension Assessment & Plan Assessment & Plan (1) Uncontrolled type 1 diabetes mellitus with hyperglycemia, with long-term current use of insulin: Code(s): E10.65 - Type 1 diabetes mellitus with hyperglycemia Plan: Patient presents for pump training for Omnipod 5 pump and Dexcom G6 CGM training today. The following topics were reviewed today: - insulin to carb ratio - target goal verses correction threshold ??? High Alert: 400 mg/dl ??? Low Alert: 90 mg/dl CGM data ??? patient above target 47% patient at target 53% patient below target 0% average glucose for the past 2 weeks 187 mg/dL patient in auto mode 70% manual mode 30% Last A1c 8.3 %, in December 2023, patient missed appointment with Dr. Lyon in April, instructed patient to reschedule appointment at today's visit Patient reports having difficulty getting sensor to connect to telecommunications engineer, patient had turned on Dexcom telecommunications engineer because her phone had not been working well. Instructed patient to turn off Dexcom telecommunications engineer causes could interfere with connection with the Omnipod telecommunications engineer. In addition patient had recently changed Dexcom transmitter, patient given new transmitter in case it is transmitter issue Instructed patient if she is still having difficulty after turning off Dexcom telecommunications engineer and changing out Dexcom transmitter to contact Omnipod regarding replacement pods Instructed patient to try and make manual correction 2 hours after meals if glucose levels are still elevated Patient mentioned that she had recently diagnosed with gastroparesis. Discussed with patient how gastroparesis can interfere with the emptying of the stomach, which can cause delay in glucose rise after meals Troubleshooting after starting new pod or inserting new insulin set: Occlusion, adhesive tape sensitivity, redness Check BG 2 hours after site change Patient understands the basic concepts of pump therapy, how to give insulin for meals and snacks, how to troubleshoot for hyper and hypoglycemia. Setting verified by [facility], patient declined to make changes pump settings at today's visit Basal rate(s) (units/hour) : 12 AM to 12 AM 1.0 units / hr Bolus setting Insulin Carbohydrate Ratio (s) 12 AM to 6 AM 1:12 6 AM to 12 PM 1:8 12:AM to 12 AM 1:9 Correction Factor / Sensitivity Factor 12 AM to 12 AM ??1:55 Active Insulin Time:? 4 hours Target(s): 12 AM to 12 AM 110mg/dL correct above 110 mg/dL Patient Instructions: Patient will follow-up with clinical trial educator in 5 months Coding Level of Care Code Est Pt Level 1 (72429) Diagnoses Uncontrolled type 1 diabetes mellitus with hyperglycemia, with long-term current use of insulin E10.65
== END 2024-05-20 10:18 | disposition home or self-care (01) ==
PROVIDERS: PCP Nurse Practitioner Family; Visit Provider Registered Nurse Diabetes Educator
DX: E10.65 Type 1 diabetes mellitus with hyperglycemia (principal)

== ENCOUNTER → 2024-05-20 09:47 | Outpatient (BNVA) | payer OTHER, SELFPAY | PROVIDERS: PCP Nurse Practitioner Family; Visit Provider Registered Nurse Diabetes Educator | DX: E10.65 Type 1 diabetes mellitus with hyperglycemia (principal); Z96.41 Presence of insulin pump (external) (internal); Z79.4 Long term (current) use of insulin | CPT/HCPCS: 99211 ==

== ENCOUNTER 2024-05-23 08:53 | Outpatient (AMB) | payer OTHER, SELFPAY ==
--- NOTE | 2024-05-23 09:00 | A.OFFVIS_ITS ---
Vital Signs 05/23/24 09:03 Height 5 ft Weight 123 lb 7.342 oz BMI 24.1 BP 118/72 Blood Pressure Location Rt brachial Position Sitting Pulse 90 Pulse Source Pulse Oximeter Intake Visit Reasons: T1DM/CONFIRMED Intake Note: Patient presents today to re-establish treatment on Type 1 Diabetes Mellitus: Patient receives DME supplies through: Pharmacy Patient receives insulin pump supplies through: Pharmacy Last Diabetic Eye exam: 06/2023 Last Podiatry Exam: Does not see a Manager Metrology Most recent HbA1c: 8.5%, 05/23/2024 Random Glucose- 135 mg/dL, Today Coater Operator Insulation Board Required: No Accompanied by: Mother Allergies hydromorphone Allergy (Unknown, Verified 05/23/24 09:05) Unknown infliximab [From Remicade] Allergy (Unknown, Verified 05/23/24 09:05) Unknown sulfamethoxazole [From Bactrim] Allergy (Unknown, Verified 05/23/24 09:05) Unknown trimethoprim [From Bactrim] Allergy (Unknown, Verified 05/23/24 09:05) Unknown HPI Comments Details: 33 YO F with is seen in consultation for T1DM at the request of PCP. Initially diagnosed with T1DM BANDAR in 02/2019 when presented with hyperglycemia . Hemoglobin A1c in the office today is 8.5% Was initially started on treatment with metformin . She was started on insulin pump since last fall. Basal rate(s) (units/hour) : 12 AM to 12 AM 1.0 units / hr Bolus setting Insulin Carbohydrate Ratio (s) 12 AM to 6 AM 1:12 6 AM to 12 PM 1:8 NEW 7.5 12:AM to 12 AM 1:9 NEW 8.5 Correction Factor / Sensitivity Factor 12 AM to 12 AM ??1:55 Active Insulin Time:? 4 hours Target(s): 12 AM to 12 AM 110mg/dL correct above 110 mg/dL Most recent A1C: [8.5], [down] from prior of [11.3 in the fall]. 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 Checks sugar after to ensure it is rising. Follows the rule of 15's. Doesn't always carry a sugar source Family history of autoimmunity . Sister has Graves DX Dexcom ] average glucose: [185 ] Glucose Management indicator [%] TIme in range: [ 13] % very high (above 250) [ 33] % high (181-250) [54 ] % in range (70-180] [ 0] % low (69-55) [0 ] % very low (below 54) auto mode 64% of the time Generally higher than this but has some connection problems between pod and sensor Has eyes checked yearly, last eye exam 07/2023, scheduled for 08/07 no retinopathy. has neuropathy,not sees podiatry. Denies nephropathy, Not on ION/ARB. Has HLD, on statin. Denies history of CAD. Had diabetes education. Diet/Carb counting: yes prior episodes of DKA: April Had normal sugars at the time but felt poorly and tested mod ketones->Referred to ER by our office and was admitted to the hospital Denies prior severe episodes of hypoglycemia requiring help or hospitalization. COUNTS INCLUDE 234 BEDS AT THE [facility] Medical History (Updated 05/23/24 @ 09:59 by Bell Tomlin NP) Crohn disease Uncontrolled type 1 diabetes mellitus with hyperglycemia, with long-term current use of insulin Surgical History Hx of section Hx of resection of small bowel Family History Mother History of hypertension Hyperlipidemia Father History of hypertension Physical Exam Vital Signs: Last Vital Signs Pulse 90 05/23/24 09:03 Const Other: Absence of Cushingoid features. Absence of acromegalic features. Neck exam reveals nl size thyroid about 15 gms. No thyroid nodules palpable. No carotid bruits present. Lungs CTA. Heart S1 S2, Reg R/R. No M/R G. Skin exam reveals absence of vitiligo or acanthosis nigricans. Extrem Other: Visual exam of foot performed. No ulcerations or open lesions. No onchomycosis, no callouses. Sensation diminshed to monofilament exam left great toe. Vibratory sensation is normal with 128 Hz tuning fork. Results AMB Hemoglobin A1c AMB Hemoglobin A1c 8.5 % Last Edit by DAYSI Romero on 05/23/24 09:26 Results Reviewed Results Reviewed: Laboratory Tests 07/04/23 10/09/23 01/15/24 09:56 13:10 07:20 Creatinine 0.59 Estimated GFR > 60 Hgb A1c (Clinic) 11.4 H 10.3 H Triglycerides 209 H Cholesterol 179 LDL Cholesterol, Calc 107 H HDL Cholesterol 31 L TSH 1.32 Free T4 0.80 01/15/24 13:08 Creatinine Estimated GFR Hgb A1c (Clinic) 8.3 H Triglycerides Cholesterol LDL Cholesterol, Calc HDL Cholesterol TSH Free T4 Assessment & Plan Assessment & Plan (1) Uncontrolled type 1 diabetes mellitus with hyperglycemia, with long-term current use of insulin: Code(s): E10.65 - Type 1 diabetes mellitus with hyperglycemia Category: Medical Plan: Type 1 diabetic on an Omnipod insulin pump since last fall. Initially A1cs were in the 11% range. Today she is 8.5%. Her Crohn's is no longer in remission and GI is suspecting that she may have some element of gastroparesis. She is having highs after the meals and we adjusted her insulin to carb ratio today she was also asked to take her insulin 20 minutes before the meal instead of the 15 to see if that might help. I will see her back in 6 weeks to make further adjustments. Her current basal to bolus ratio is 70 % to 30%. Will gradually work towards adjusting at but maybe somewhat limited due to her GI symptoms/possible gastroparesis. She is on Lyrica for neuropathy and would like to see a motorcycle riding instructor. Referral done. Patient teaching today: The patient was counseled to always carry a source of sugar and on the rule of 15's: Take 3 glucose tablets and repeat again in 15 minutes if blood sugar is not in normal range. Continue to repeat every 15 minutes until blood sugar is normal. The patient was counseled to achieve a target A1C of 7% (154 avg). Fasting blood sugars should be 90-130 in the morning and less than 180 two hours after meals. Reviewed the relationship between poor diabetic control and the developement of complications. Symptoms of DKA were reviewed: early: frequent urination, dry mouth, ketones in the urine, severe symptoms: abdominal pain, nausea, vomiting and weakness. It is important to hydrate with sugar free liquids every 30 minutes and bring the sugars down to normal levels. Backup insulin plan 26 units of tresiba )long acting) per day and Humalog according to insulin to carb/sensitivity corrections (approximate 11 units per day ( Orders: Orders AMB Hemoglobin A1c Today E10.65 - Type 1 diabetes mellitus with hyperglycemia Referrals Podiatry Referral E10.65 - Type 1 diabetes mellitus with hyperglycemia Coding Level of Care Code Est Pt Level 5 (77267) Diagnoses Uncontrolled type 1 diabetes mellitus with hyperglycemia, with long-term current use of insulin E10.65
[2024-05-23 09:03] VITALS: BP 118/72; PULSE 90; BMI 24.1
[2024-05-23 09:14] LABS: Glucose, Whole Blood 165 mg/dL (60-115)
== END 2024-05-23 09:43 | disposition home or self-care (01) ==
PROVIDERS: PCP Nurse Practitioner Family; Visit Provider Nurse Practitioner Adult Health
DX: E10.65 Type 1 diabetes mellitus with hyperglycemia (principal)
CPT/HCPCS: 99215

== ENCOUNTER → 2024-05-23 08:53 | Outpatient (BNVA) | payer OTHER, SELFPAY | PROVIDERS: PCP Nurse Practitioner Family; Visit Provider Nurse Practitioner Adult Health | DX: E10.65 Type 1 diabetes mellitus with hyperglycemia (principal); Z46.81 Encounter for fitting and adjustment of insulin pump; Z79.4 Long term (current) use of insulin | CPT/HCPCS: 82947; 83036; 99212 ==

== ENCOUNTER 2024-07-02 13:50 | Outpatient (AMB) | payer OTHER, SELFPAY ==
--- NOTE | 2024-07-02 12:38 | A.OFFVIS_ITS ---
Intake Visit Reasons: T1DM Intake Note: Patient presents today for a follow-up on Type 1 Diabetes Mellitus: Patient receives DME supplies through: Pharmacy Patient receives insulin pump supplies through: Pharmacy Last Diabetic Eye exam: 06/2023 Last Podiatry Exam: Does not see a Brace Maker Most recent HbA1c: 8.5%, 05/23/2024 Random Glucose- ___ mg/dL, Today Spinning Frame Tender Required: No Accompanied by: Mother Allergies hydromorphone Allergy (Unknown, Verified 07/02/24 13:53) Unknown infliximab [From Remicade] Allergy (Unknown, Verified 07/02/24 13:53) Unknown sulfamethoxazole [From Bactrim] Allergy (Unknown, Verified 07/02/24 13:53) Unknown trimethoprim [From Bactrim] Allergy (Unknown, Verified 07/02/24 13:53) Unknown HPI Comments Details: 33 YO F with is seen in consultation for T1DM at the request of PCP. Initially diagnosed with T1DM BANDAR in 02/2019 when presented with hyperglycemia . Hemoglobin A1c in the office last month was 8.5% Was initially started on treatment with metformin . She was started on insulin pump Fall 2022. A1C's were running 10-11% pre pump Basal rate(s) (units/hour) : 12 AM to 12 AM 1.0 units / hr Bolus setting Insulin Carbohydrate Ratio (s) 12 AM to 6 AM 1:12 6 AM to 12 PM 1:8 NEW 7.5 12:AM to 12 AM 1:9 NEW 8.5 Correction Factor / Sensitivity Factor 12 AM to 12 AM ??1:55 Active Insulin Time:? 4 hours Target(s): 12 AM to 12 AM 110mg/dL correct above 110 mg/dL Most recent A1C: [8.5], [down] from prior of [11.3 in the fall]. 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 Checks sugar after to ensure it is rising. Follows the rule of 15's. Doesn't always carry a sugar source Family history of autoimmunity . Sister has Graves DX Dexcom ] average glucose: [185 ] Glucose Management indicator [%] TIme in range: [ 13] % very high (above 250) [ 33] % high (181-250) [54 ] % in range (70-180] [ 0] % low (69-55) [0 ] % very low (below 54) auto mode 64% of the time Generally higher than this but has some connection problems between pod and sensor Has eyes checked yearly, last eye exam 07/2023, scheduled for 08/07 no retinopathy. has neuropathy,not sees podiatry. Denies nephropathy, Not on ION/ARB. Has HLD, on statin. Denies history of CAD. Had diabetes education. Diet/Carb counting: yes prior episodes of DKA: April Had normal sugars at the time but felt poorly and tested mod ketones->Referred to ER by our office and was admitted to the hospital Denies prior severe episodes of hypoglycemia requiring help or hospitalization. [facility] Medical History Crohn disease Uncontrolled type 1 diabetes mellitus with hyperglycemia, with long-term current use of insulin Surgical History Hx of section Hx of resection of small bowel Family History Mother History of hypertension Hyperlipidemia Father History of hypertension Social History (Updated 07/02/24 @ 13:54 by DAYSI Romero) Alcohol intake: current Alcohol intake frequency: does not drink Patient Tobacco Use Status: Never used Tobacco Results Reviewed Results Reviewed: Laboratory Tests 10/09/23 01/15/24 01/15/24 13:10 07:20 07:25 Potassium 4.1 Estimated GFR > 60 Hgb A1c (Clinic) 10.3 H LDL Cholesterol, Calc 107 H TSH 1.32 Free T4 0.80 Urine Creatinine 123.19 Urine Microalbumin 14.0 Microalb/Creat Ratio 11.3 01/15/24 05/23/24 13:08 09:16 Potassium Estimated GFR Hgb A1c (Clinic) 8.3 H 8.5 H LDL Cholesterol, Calc TSH Free T4 Urine Creatinine Urine Microalbumin Microalb/Creat Ratio Coding
--- NOTE | 2024-07-02 13:56 | A.OFFVIS_ITS ---
Vital Signs 07/02/24 13:57 Height 5 ft Weight 121 lb 4.068 oz BMI 23.7 BP 114/70 Blood Pressure Location Rt brachial Position Sitting Pulse 86 Pulse Source Pulse Oximeter Intake Visit Reasons: T1DM Intake Note: Patient presents today for a follow-up on Type 1 Diabetes Mellitus: Patient receives DME supplies through: Pharmacy Patient receives insulin pump supplies through: Pharmacy Last Diabetic Eye exam: 06/2023 Last Podiatry Exam: Does not see a Collection Systems Technician Most recent HbA1c: 8.5%, 05/23/2024 Random Glucose- 205 mg/dL, Today Acid Concentrator Required: No Accompanied by: Self / Same As Patient Allergies hydromorphone Allergy (Unknown, Verified 07/02/24 13:53) Unknown infliximab [From Remicade] Allergy (Unknown, Verified 07/02/24 13:53) Unknown sulfamethoxazole [From Bactrim] Allergy (Unknown, Verified 07/02/24 13:53) Unknown trimethoprim [From Bactrim] Allergy (Unknown, Verified 07/02/24 13:53) Unknown HPI Comments Details: 33 YO F with type 1 diabetes on an insulin pump is seen today in follow-up she was last seen in May at which time setting changes were made to her pump. Initially diagnosed with T1DM BANDAR in 02/2019 when presented with hyperglycemia . Hemoglobin A1c 7/9 was 8.5% Was initially started on treatment with metformin . She was started on insulin pump since last fall. Dexcom average glucose: 187 14 day continuous glucose monitor report reviewed Glucose Managment indicator 7.8 % Days with CGM data 100 % TIme in ranges: Seventeen % very high (above 250) 31 % high ?(181-250) 52 % in range ?(70-180] 0 % low (69-55) Less than 1 % ?very low (below 54) Interpretation [overall readings are 30-40 points higher than target and she is having postprandial hyperglycemia for 3 meals daily the stay from 0 1 she being get that down she getting more now they just given to her but I do not she needs to stay well see if it come down 0 not red since you I did not a known I did by 10 minutes ago we will give him a 10 would send ] Basal rate(s) (units/hour) : 12 AM to 12 AM 1.0 units / hr new 1.1 Bolus setting Insulin Carbohydrate Ratio (s) 12 AM to 6 AM 1:12 6 AM to 12 PM 1:7.5 NEW 6.5 12:AM to 12 AM 1:8.5 NEW 7.5 Correction Factor / Sensitivity Factor 12 AM to 12 AM ??1:55 Active Insulin Time:? 4 hours Target(s): 12 AM to 12 AM 110mg/dL correct above 110 mg/dL Most recent A1C: [8.5], [down] from prior of [11.3 in the fall]. 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 Checks sugar after to ensure it is rising. Follows the rule of 15's. Doesn't always carry a sugar source Family history of autoimmunity . Sister has Graves DX Has eyes checked yearly, last eye exam 07/2023, scheduled for 08/07 no retinopathy. has neuropathy,not sees podiatry. Denies nephropathy, Not on ION/ARB. Has HLD, on statin. Denies history of CAD. Had diabetes education. Diet/Carb counting: yes prior episodes of DKA: April Had normal sugars at the time but felt poorly and tested mod ketones->Referred to ER by our office and was admitted to the hospital Denies prior severe episodes of hypoglycemia requiring help or hospitalization. [facility] Medical History Crohn disease Uncontrolled type 1 diabetes mellitus with hyperglycemia, with long-term current use of insulin Surgical History Hx of section Hx of resection of small bowel Family History Mother History of hypertension Hyperlipidemia Father History of hypertension Social History (Updated 07/02/24 @ 13:54 by DAYSI Romero) Alcohol intake: current Alcohol intake frequency: does not drink Patient Tobacco Use Status: Never used Tobacco Physical Exam Vital Signs: Last Vital Signs Pulse 86 07/02/24 13:57 BP 114/70 07/02/24 13:57 BMI result Body Mass Index 23.7 Office Procedures Glucose Monitoring Details Details: see hpi 13871 - Glucose monitoring, continuous-physician I&R Procedure code (CPT) selection complete Results Reviewed Results Reviewed: Laboratory Last Values Glucose (Clinic) 205 mg/dL (60-115) H 07/02/24 14:04 Assessment & Plan Assessment & Plan (1) Uncontrolled type 1 diabetes mellitus with hyperglycemia, with long-term current use of insulin: Code(s): E10.65 - Type 1 diabetes mellitus with hyperglycemia Category: Medical Plan: Type 1 diabetic on insulin pump with improving glycemic control. Settings adjusted on pump to move her towards an average glucose of 154. Orders: Orders AMB Glucose Monitoring Today E10.65 - Type 1 diabetes mellitus with hyperglycemia Patient Instructions: The patient was counseled to achieve a target A1C of 7% (154 avg). Fasting blood sugars should be 90-130 in the morning and less than 180 two hours after meals. Reviewed the relationship between poor diabetic control and the developement of complications Symptoms of DKA were reviewed: early: frequent urination, dry mouth, fatigue, feeling ill, severe symptoms: ketones in the urine, abdominal pain, nausea, vomiting and weakness. It is important to hydrate with sugar free liquids every 30 minutes and bring the sugars down to normal levels. Troubleshooting after starting new pod or inserting new insulin set: Occlusion, adhesive tape sensitivity, redness Check BG 2 hours after site change Safety information: Importance of a backup plan, for manual injections, proper prescriptions and emergency supplies ketone strips, and rules for testing for ketones Coding Level of Care Code Est Pt Level 4 (72170) Complex EM visit Add On G2211 Diagnoses Uncontrolled type 1 diabetes mellitus with hyperglycemia, with long-term current use of insulin E10.65 CPT Codes Details - CPT: 40939 - Glucose monitoring, continuous-physician I&R ([id number]) Time Spent (min) 35 Comment Reviewing labs/provider notes, glucose sensor/pump reports, face to face, chart doc
[2024-07-02 13:57] VITALS: BP 114/70; PULSE 86; BMI 23.7
[2024-07-02 14:09] LABS: Glucose, Whole Blood 205 mg/dL (60-115)
== END 2024-07-02 14:24 | disposition home or self-care (01) ==
PROVIDERS: PCP Internal Medicine; Visit Provider Nurse Practitioner Adult Health
DX: E10.65 Type 1 diabetes mellitus with hyperglycemia (principal)
CPT/HCPCS: 95251; 99214; G2211

== ENCOUNTER → 2024-07-02 13:50 | Outpatient (BNVA) | payer OTHER, SELFPAY | PROVIDERS: PCP Internal Medicine; Visit Provider Nurse Practitioner Adult Health | DX: Z46.81 Encounter for fitting and adjustment of insulin pump (principal); E10.65 Type 1 diabetes mellitus with hyperglycemia; Z79.4 Long term (current) use of insulin | CPT/HCPCS: 82947; 99212 ==

== ENCOUNTER 2024-07-31 13:54 | Outpatient (AMB) | payer OTHER, SELFPAY ==
--- NOTE | 2024-07-31 10:57 | A.OFFVIS_ITS ---
Vital Signs 07/31/24 13:59 Height 5 ft Weight 116 lb 13.52 oz BMI 22.8 BP 114/78 Blood Pressure Location Rt brachial Position Sitting Pulse 94 Pulse Source Pulse Oximeter Intake Visit Reasons: T1DM Intake Note: Patient presents today for a follow-up on Type 1 Diabetes Mellitus: Patient receives DME supplies through: Pharmacy Patient receives insulin pump supplies through: Pharmacy Last Diabetic Eye exam: 06/2023 Last Podiatry Exam: Does not see a Informatics Developer Most recent HbA1c: 8.5%, 05/23/2024 Random Glucose- 245mg/dL, Today Business Systems Consultant Required: No Accompanied by: Self / Same As Patient Allergies hydromorphone Allergy (Unknown, Verified 07/31/24 13:57) Unknown infliximab [From Remicade] Allergy (Unknown, Verified 07/31/24 13:57) Unknown sulfamethoxazole [From Bactrim] Allergy (Unknown, Verified 07/31/24 13:57) Unknown trimethoprim [From Bactrim] Allergy (Unknown, Verified 07/31/24 13:57) Unknown HPI Comments Details: 34 YO F with type 1 diabetes on an insulin pump is seen today in follow-up she was last seen 1 month ago at which time setting changes were made to her pump to give her additional pre-prandial insulin. She was away this weekend and had insulin set fall out and then ran out of sensors. During this time she used her backup method 36 units of Lantus and short-acting insulin. Initially diagnosed with T1DM BANDAR in 02/2019 when presented with hyperglycemia . Hemoglobin A1c 07/31/24 % 05/23/24 8.5% Was initially started on treatment with metformin . She was started on insulin pump fall 2022. Pre pump A1C was 11.4 %. Dexcom average glucose: 201 14 day continuous glucose monitor report reviewed Days with CGM data 63.9 % TIme in ranges: 20 % very high (above 250) 37 % high ?(181-250) 43 % in range ?(70-180] 0 % low (69-55) 0 % ?very low (below 54) [ ] Standard Deviation Interpretation [back on pump for the last 4 days having some postprandial highs which eventually come down to normal range ] Basal rate(s) (units/hour) : 12 AM to 12 AM 1.1 units / hr Bolus setting Insulin Carbohydrate Ratio (s) 12 AM to 6 AM 1:12 6 AM to 12 PM 1:6.5 12:AM to 12 AM 1:7.5 Correction Factor / Sensitivity Factor 12 AM to 12 AM ??1:55 Active Insulin Time:? 4 hours Target(s): 12 AM to 12 AM 110mg/dL correct above 120 mg/dL She is working with a psychological operations specialist Crohn's no longer in remission and they have recently diagnosed her with chronic gastroparesis for which she is taking Carafate a 1000 mg twice daily and Reglan 10 mg t.i.d.. Treats lows with OJ . Checks sugar after to ensure it is rising. Family history of autoimmunity . Sister has Graves DX Has eyes checked yearly, last eye exam 07/2023, scheduled for 08/07 no retinopathy. Has neuropathy, symptoms are: numbness, tingling, no cramping Denies nephropathy, Not on ION/ARB. 01/2024: microalbumin 14, eGFR >60 Has HLD, on statin. Denies history of CAD. Had diabetes education. Diet/Carb counting: yes Prior episodes of DKA: April 2024 Had normal sugars at the time but felt poorly and tested mod ketones->Referred to ER by our office and was admitted to the hospital Denies prior severe episodes of hypoglycemia requiring help or hospitalization. [facility] Medical History Crohn disease Uncontrolled type 1 diabetes mellitus with hyperglycemia, with long-term current use of insulin Surgical History Hx of section Hx of resection of small bowel Family History Mother History of hypertension Hyperlipidemia Father History of hypertension Social History Alcohol intake: current Alcohol intake frequency: does not drink Patient Tobacco Use Status: Never used Tobacco Physical Exam Vital Signs: BMI result Body Mass Index 22.8 Const Other: Absence of Cushingoid features. Absence of acromegalic features. Neck exam reveals nl size thyroid about 15 gms. No thyroid nodules palpable.Heart S1 S2, Reg R/R. No M/R G. Skin exam reveals absence of vitiligo or acanthosis nigricans. No edema Visual exam of foot performed. No ulcerations or open lesions. No inter digit maceration or fissuring. No onychomycosis, no callouses. Sensation intact. Office Procedures Glucose Monitoring Details Details: See HPI 70289 - Glucose monitoring, continuous-physician I&R Procedure code (CPT) selection complete Assessment & Plan Assessment & Plan (1) Uncontrolled type 1 diabetes mellitus with hyperglycemia, with long-term current use of insulin: Code(s): E10.65 - Type 1 diabetes mellitus with hyperglycemia Category: Medical Plan: 34-year-old type 1 diabetic on an Omnipod insulin pump with improving glycemic control. Complications:gastroparesis and neuropathy. Had been off pump for over week but was using backup method now back on. She is having some postprandial elevations and she was asked to enter her carbohydrate g 10 minutes before the meal and to add the carbohydrates for her vegetables which he has not been doing The patient had an opportunity to ask questions regarding treatment plan. The patient expressed understanding and agreement with the above treatment plan. The patient is aware they should contact our office by phone for worsening glucose readings or for any low blood sugars which may warrant a change in diabetes medication. Compliance is encouraged with any medications and followup testing that is ordered Orders: Orders AMB Glucose Monitoring Today E10.65 - Type 1 diabetes mellitus with hyperglycemia Patient Instructions: The patient was counseled to always carry a source of sugar and on the rule of 15's: Take 3 glucose tablets and repeat again in 15 minutes if blood sugar is not in normal range. Continue to repeat every 15 minutes until blood sugar is normal. Troubleshooting after starting new pod or inserting new insulin set: Occlusion, adhesive tape sensitivity, redness Check BG 2 hours after site change Safety information: Importance of a backup plan, for manual injections, proper prescriptions and emergency supplies ketone strips, and rules for testing for ketones. Coding Level of Care Code Est Pt Level 4 (67687) Diagnoses Uncontrolled type 1 diabetes mellitus with hyperglycemia, with long-term current use of insulin E10.65 CPT Codes Details - CPT: 78645 - Glucose monitoring, continuous-physician I&R ([id number]) Time Spent (min) 35 Comment Reviewing labs/provider notes, glucose sensor/pump reports, face to face, chart doc
[2024-07-31 13:59] VITALS: BP 114/78; PULSE 94; BMI 22.8
[2024-07-31 14:06] LABS: Glucose, Whole Blood 245 mg/dL (60-115)
== END 2024-07-31 14:24 | disposition home or self-care (01) ==
PROVIDERS: PCP Internal Medicine; Visit Provider Nurse Practitioner Adult Health
DX: E10.65 Type 1 diabetes mellitus with hyperglycemia (principal)
CPT/HCPCS: 95251; 99214

== ENCOUNTER → 2024-07-31 13:54 | Outpatient (BNVA) | payer OTHER, SELFPAY | PROVIDERS: PCP Internal Medicine; Visit Provider Nurse Practitioner Adult Health | DX: E10.65 Type 1 diabetes mellitus with hyperglycemia (principal); Z79.4 Long term (current) use of insulin | CPT/HCPCS: 82947; 99212 ==

== ENCOUNTER 2024-11-13 23:14 | Emergency (ER) | payer OTHER, SELFPAY ==
[2024-11-13 23:33] VITALS: BP 149/63; PULSE 82; RESP 16; TEMP 37; O2SAT 98; BMI 20.8
[2024-11-13 23:42] LABS: MANUAL DIFF FLAG NO
[2024-11-13 23:44] LABS: Basophils Absolute Auto 0.1 X10*3/uL (0.0-0.2); Basophils Percent Auto 0.3 % (0-2); Eosinophils Absolute Auto 0.1 X10*3/uL (0.0-0.4); Eosinophils Percent Auto 0.7 % (0-4); Hemoglobin 12.4 g/dl (12.0-16.0); Imm Gran Abs Auto 0.08 X10*3/uL (0.00-0.03); Imm Gran Pct Auto 0.5 % (0.0-0.4); Lymphocytes Absolute Auto 1.6 X10*3/uL (1.2-4.9); Lymphocytes Percent Auto 10.7 % (20-40); Mean Corpuscular HGB Conc 33.5 g/dl (31.0-35.0); Mean Corpuscular Hemoglobin 29.5 pg (27.0-33.0); Mean Corpuscular Volume 87.9 fL (80.0-98.0); Mean Platelet Volume 10.2 fL (9.4-12.3); Monocytes Absolute Auto 0.6 X10*3/uL (0.1-1.2); Monocytes Percent Auto 4.2 % (2-11); Neutrophils Absolute Auto 12.4 x10*3/uL (2.0-8.3); Neutrophils Percent Auto 83.6 % (45-73); Platelet Count 314 X10*3/uL (160-400); Red Blood Count 4.21 X10*6/uL (4.20-5.50); Red Cell Distribution Width 15.5 % (11.0-16.0); White Blood Count 14.9 X10*3/uL (4.8-10.8)
[2024-11-13 23:56] LABS: Alanine Aminotransferase 108 U/L (0-31); Albumin Level 3.8 g/dL (3.5-5.0); Alkaline Phosphatase 109 U/L (39-117); Anion Gap 14 (12-20); Aspartate Amino Transferase 76 U/L (5-31); Bilirubin Total 0.3 mg/dL (0.0-1.0); Blood Urea Nitrogen 9 mg/dL (9-16); Calcium 9.3 mg/dL (8.4-10.2); Carbon Dioxide 24 mmol/L (22-29); Chloride 104 mmol/L (96-108); Creatinine Clr Calc Pharmacy 101.2; Estimated Glomerular Filt Rate > 60; Glucose Random 181 mg/dL (60-115); Potassium 4.2 mmol/L (3.3-5.1); Sodium 138 mmol/L (135-145); Total Protein 6.8 g/dL (6.5-8.0)
--- NOTE | 2024-11-14 02:33 | ED.EXTPRO ---
HPI - Extremity Problem General Chief complaint: Extremity Injury, Lower Stated complaint: swollen knees, diabetic Time Seen by Provider: 11/14/24 02:31 Source: patient Mode of arrival: ambulatory Limitations: no limitations History of Present Illness ED Provider: HPI Narrative: Patient with diabeties for last 4 years , insulin dependent with painful neuropathy for last 3 years tried gabapentin before now taking Lyrica also does have Crohn's disease on prednisone comes here as unable to sleep because of pain. No swelling of the knee joint no fever or chills no recent trauma Related Data Home Medications ?Medication ?Instructions ?Recorded ?Confirmed albuterol sulfate 90 mcg/actuation 1 puff inhalation QID PRN wheezing 04/06/23 10/09/23 aerosol inhaler (Ventolin HFA) atorvastatin 10 mg tablet 10 mg PO DAILY 04/06/23 10/09/23 blood sugar diagnostic (FreeStyle #10 ea 04/06/23 10/09/23 Lite Strips) buprenorphine 8 mg-naloxone 2 mg 10 mg sublingual DAILY 04/06/23 10/09/23 sublingual film (Suboxone) buspirone 15 mg tablet 15 mg PO TID 04/06/23 10/09/23 duloxetine 30 mg capsule,delayed 30 mg PO DAILY 04/06/23 10/09/23 release duloxetine 60 mg capsule,delayed 60 mg PO DAILY 04/06/23 10/09/23 release ferrous sulfate 325 mg (65 mg 325 mg PO DAILY 04/06/23 10/09/23 iron) tablet,delayed release fluconazole 150 mg tablet 150 mg PO QWEEK 04/06/23 10/09/23 glucagon 3 mg/actuation nasal 3 mg intranasal 04/06/23 10/09/23 spray (Baqsimi) insulin degludec 100 unit/mL (3 unit subcut 04/06/23 10/09/23 mL) subcutaneous pen (Tresiba FlexTouch U-100 insulin) insulin syringe-needle U-100 1 mL #10 ea 04/06/23 10/09/23 31 gauge x 5/16 (BD Insulin Syringe Ultra-Fine) lancets 28 gauge (FreeStyle #100 ea 04/06/23 10/09/23 Lancets) lidocaine 5 % topical ointment topical TID PRN mild pain 04/06/23 10/09/23 loratadine 10 mg tablet 10 mg PO DAILY 04/06/23 10/09/23 nicotine 7 mg/24 hr daily 1 patch topical DAILY 04/06/23 10/09/23 transdermal patch norethindrone (contraceptive) 0.35 0.35 mg PO DAILY 04/06/23 10/09/23 mg tablet omeprazole 40 mg capsule,delayed 40 mg PO 04/06/23 10/09/23 release ondansetron HCl 4 mg tablet 4 mg PO Q8H PRN nausea 04/06/23 10/09/23 pen needle, diabetic 31 gauge x #1,200 ea 04/06/23 10/09/23/16 (BD Ultra-Fine Short Pen Needle) sumatriptan succinate 25 mg tablet 0 mg PO 04/06/23 10/09/23 buprenorphine 2 mg-naloxone 0.5 mg 1 film sublingual DAILY 05/23/24 sublingual film (Suboxone) pregabalin 150 mg capsule 150 mg PO BID 05/23/24 sucralfate 1 gram tablet 1 g PO QID 05/23/24 Previous Rx's ?Medication ?Instructions ?Recorded insulin pump cartridge,automated #1 ea 06/28/23 dose,BT with controller subcutaneous (Omnipod 5 G6 Intro Kit (Gen 5) subcutaneous cartridge with controller) acetone (urine) test (Ketone Urine #50 ea 11/30/23 Test strips) blood-glucose meter,continuous #1 ea 04/07/24 (Dexcom G6 Stamping Bench Die Maker) insulin lispro 100 unit/mL See Rx Instructions subcut DAILY 04/22/24 subcutaneous solution #20 mL blood-glucose transmitter (Dexcom #1 ea 04/23/24 G6 Transmitter device) insulin pump cart,auto,BT,G6/7 #10 ea 10/29/24 (Omnipod 5 G6-G7 Pods (Gen 5) subcutaneous cartridge) insulin pump cart,automated,BT #10 ea 10/29/24 blood-glucose sensor (Dexcom G6 #3 ea 10/31/24 Sensor device) lorazepam 1 mg tablet 1 mg PO BEDTIME PRN sleep #20 tabs 11/14/24 tramadol 50 mg tablet 50 mg PO Q6H PRN pain #20 tabs 11/14/24 Allergies Allergy/AdvReac Type Severity Reaction Status Date / Time hydromorphone Allergy Unknown Unknown Verified 11/13/24 23:35 infliximab [From Remicade] Allergy Unknown Unknown Verified 11/13/24 23:35 sulfamethoxazole Allergy Unknown Unknown Verified 11/13/24 23:35 [From Bactrim] trimethoprim [From Bactrim] Allergy Unknown Unknown Verified 11/13/24 23:35 Review of Systems Review of Systems: Yes all other systems are reviewed and are negative PMFSH Past Medical History Medical History Crohn disease Uncontrolled type 1 diabetes mellitus with hyperglycemia, with long-term current use of insulin Surgical History Hx of section Hx of resection of small bowel Family History Family History Mother History of hypertension Hyperlipidemia Father History of hypertension Social History Social History Alcohol intake: current Alcohol intake frequency: does not drink Patient Tobacco Use Status: Never used Tobacco Advance Directives: No Advance Directives Information Provided: Yes Do you have a plan to hurt others: No Plan Physical Exam Vital Signs: Vital Signs: Last Vital Signs Temp 98.6 F 11/13/24 23:33 Pulse 82 11/13/24 23:33 Resp 16 11/13/24 23:33 BP 149/63 H 11/13/24 23:33 Pulse Ox 98 11/13/24 23:33 O2 Del Method Room Air 11/13/24 23:33 BMI result Body Mass Index 20.8 Appearance: Alert. Oriented X3. No acute distress. Eyes: No pallor or icterus ENT: Pharynx normal. Oral Mucosa moist Neck: Normal inspection. Neck supple. CVS: Normal heart rate and rhythm. Pulses normal. Respiratory: No respiratory distress. Equal air entry bilateral, no wheezing/rales/rhonchi Abdomen: Soft and nontender. Bowel sounds are present, no mass palpable, no CVA tenderness Skin: Skin warm and dry. Normal skin color. Normal skin turgor. Extremities: No lower extremity edema. No calf tenderness no knee effusion Neuro: Oriented X 3. No motor deficit. Happened sensitive to touch in lower extremity below-knee bilaterally.No cerebellar signs , cranial nerves II-XII intact Medical Decision Making Medical Decision Making [facility] Narrative: Patient with painful diabetic neuropathy on Lyrica will prescribe tramadol Ativan to sleep advised to follow up with neurologist Lab Data [facility] Lab Attestation statement: I reviewed the patient's lab results. 11/13/24 23:36 11/13/24 23:36 Labs: Lab Results 11/13/24 Range/Units 23:36 WBC 14.9 H (4.8-10.8) X10*3/uL RBC 4.21 (4.20-5.50) X10*6/uL Hgb 12.4 (12.0-16.0) g/dl Hct 37.0 (37.0-47.0) % MCV 87.9 (80.0-98.0) fL MCH 29.5 (27.0-33.0) pg MCHC 33.5 (31.0-35.0) g/dl RDW 15.5 (11.0-16.0) % Plt Count 314 (160-400) X10*3/uL MPV 10.2 (9.4-12.3) fL Immature Gran % (Auto) 0.5 H (0.0-0.4) % Neut % (Auto) 83.6 H (45-73) % Lymph % (Auto) 10.7 L (20-40) % Lassen % (Auto) 4.2 (2-11) % Eos % (Auto) 0.7 (0-4) % Baso % (Auto) 0.3 (0-2) % Lymph # (Auto) 1.6 (1.2-4.9) X10*3/uL Lassen # (Auto) 0.6 (0.1-1.2) X10*3/uL Eos # (Auto) 0.1 (0.0-0.4) X10*3/uL Baso # (Auto) 0.1 (0.0-0.2) X10*3/uL Abs Immat Gran (auto) 0.08 H (0.00-0.03) X10*3/uL Absolute Neuts (auto) 12.4 H (2.0-8.3) x10*3/uL Absolute Nucleated RBC 0.000 (0.0-0.012) X10*3/uL Nucleated RBC % (auto) 0.0 (0.0-0.2) /100WBC Sodium 138 (135-145) mmol/L Potassium 4.2 (3.3-5.1) mmol/L Chloride 104 (96-108) mmol/L Carbon Dioxide 24 (22-29) mmol/L Anion Gap 14 (12-20) BUN 9 (9-16) mg/dL Creatinine 0.58 (0.5-1.4) mg/dL Estim Creat Clear Calc 101.2 Estimated GFR > 60 Random Glucose 181 H (60-115) mg/dL Calcium 9.3 (8.4-10.2) mg/dL Total Bilirubin 0.3 (0.0-1.0) mg/dL AST 76 H (5-31) U/L ALT 108 H (0-31) U/L Alkaline Phosphatase 109 (39-117) U/L Total Protein 6.8 (6.5-8.0) g/dL Albumin 3.8 (3.5-5.0) g/dL Discharge Plan Discharge Clinical Impression: Chronic painful diabetic neuropathy Patient Disposition: Home, Self-Care Instructions: Diabetic Peripheral Neuropathy (ED) Additional Instructions: Continue your Lyrica for neuropathy Tramadol for severe pain Lorazepam to sleep Follow up with neurologist for further management Prescriptions: New tramadol 50 mg tablet 50 mg PO Q6H PRN (Reason: pain) Qty: 20 0RF lorazepam 1 mg tablet 1 mg PO BEDTIME PRN (Reason: sleep) Qty: 20 0RF No Action (DME) Omnipod 5 G6 Intro Kit (Gen 5) Cartridge See Rx Instructions .Route Qty: 1 0RF Rx Instructions: As directed (DME) Ketone Urine Test Strip See Rx Instructions .Route Qty: 50 4RF Rx Instructions: As directed (DME) Dexcom G6 Stamping Bench Die Maker Misc See Rx Instructions .Route Qty: 1 0RF Rx Instructions: As directed insulin lispro 100 unit/mL solution See Rx Instructions subcut DAILY Qty: 20 7RF Rx Instructions: Diffuse up to 60 units per day via insulin pump subcutaneously daily; (DME) Dexcom G6 Transmitter Device See Rx Instructions .ROUTE .MEDSUPPLY Qty: 1 0RF Rx Instructions: As directed (DME) insulin pump cart,automated,BT Cartridge See Rx Instructions .ROUTE .COMPLEX Qty: 10 11RF Dose Instruction: DIRECTED CHANGE EVERY 72 HOURS Rx Instructions: DIRECTED CHANGE EVERY 72 HOURS (DME) Omnipod 5 G6-G7 Pods (Gen 5) Cartridge See Rx Instructions .Route Qty: 10 12RF Rx Instructions: change every 3 days sucralfate 1 gram tablet 1 g PO QID pregabalin 150 mg capsule 150 mg PO BID buprenorphine-naloxone [Suboxone] 2-0.5 mg film 1 film sublingual DAILY ferrous sulfate 325 mg (65 mg iron) tablet,delayed release (DR/EC) 325 mg PO DAILY buprenorphine-naloxone [Suboxone] 8-2 mg film 10 mg sublingual DAILY duloxetine 30 mg capsule,delayed release(DR/EC) 30 mg PO DAILY (DME) pen needle, diabetic [BD Ultra-Fine Short Pen Needle] 31 gauge x 5/16 needle See Rx Instructions .ROUTE DAILY Qty: 1200 Rx Instructions: As directed ondansetron HCl 4 mg tablet 4 mg PO Q8H PRN (Reason: nausea) buspirone 15 mg tablet 15 mg PO TID insulin degludec [Tresiba FlexTouch U-100] 100 unit/mL (3 mL) insulin pen subcut duloxetine 60 mg capsule,delayed release(DR/EC) 60 mg PO DAILY (DME) FreeStyle Lite Strips Strip See Rx Instructions .ROUTE .MEDSUPPLY Qty: 10 Rx Instructions: As directed norethindrone (contraceptive) 0.35 mg tablet 0.35 mg PO DAILY (DME) insulin syringe-needle U-100 [BD Insulin Syringe Ultra-Fine] 1 mL 31 gauge x 5/16 syringe See Rx Instructions .ROUTE DAILY Qty: 10 Rx Instructions: As directed (DME) lancets [FreeStyle Lancets] 28 gauge misc See Rx Instructions .ROUTE TID Qty: 100 Rx Instructions: As directed loratadine 10 mg tablet 10 mg PO DAILY fluconazole 150 mg tablet 150 mg PO QWEEK atorvastatin 10 mg tablet 10 mg PO DAILY omeprazole 40 mg capsule,delayed release(DR/EC) 40 mg PO nicotine 7 mg/24 hr patch 24 hour 1 patch topical DAILY sumatriptan succinate 25 mg tablet 0 mg PO lidocaine 5 % ointment topical TID PRN (Reason: mild pain) Baqsimi 3 mg/actuation spray,non-aerosol 3 mg intranasal albuterol sulfate [Ventolin HFA] 90 mcg/actuation HFA aerosol inhaler 1 puff inhalation QID PRN (Reason: wheezing) (DME) Dexcom G6 Sensor Device See Rx Instructions .ROUTE Q10D Qty: 3 11RF Rx Instructions: As directed change every 10 days Referrals: Jer Mendez MD [Physician] - 2 weeks Print Language: Persian
[2024-11-14] MEDS: traMADoL HCL 50 MG TABLET PO (02:58)
--- NOTE | 2024-11-14 03:03 | PC.NURSE ---
medicated per mar, reviewed discharge instructions with pt. pt verbalized understanding, no sign of distress, pt able to ambulate with a steady gait upon discharge.
[2024-11-14 03:04] VITALS: BP 127/68; PULSE 80; RESP 19; TEMP 36.7; O2SAT 99
[2024-11-14 03:06] VITALS: BP 127/68; PULSE 80; RESP 19; TEMP 36.7; O2SAT 99
== END 2024-11-14 03:07 | disposition home or self-care (01) ==
PROVIDERS: Emergency Provider Internal Medicine; PCP Internal Medicine
DX: E10.40 Type 1 diabetes mellitus with diabetic neuropathy, unspecified (principal); Z79.4 Long term (current) use of insulin; Z79.899 Other long term (current) drug therapy
CPT/HCPCS: 36415; 80053; 85025; 99283; 99284

== ENCOUNTER 2024-12-05 14:30 | Outpatient (AMB) | payer OTHER, SELFPAY ==
--- NOTE | 2024-12-05 08:11 | A.OFFVIS_ITS ---
Vital Signs 12/05/24 14:38 Height 5 ft 1 in Weight 130 lb 1.164 oz BMI 24.6 BP 126/76 Blood Pressure Location Rt brachial Position Sitting Pulse 98 Pulse Source Pulse Oximeter Pulse Oximetry (%) 96 Oxygen Delivery Method Room Air Intake Visit Reasons: T1DM Intake Note: Patient presents today for a follow-up on Type 1 Diabetes Mellitus: Patient receives DME supplies through: Pharmacy Patient receives insulin pump supplies through: Pharmacy Last Diabetic Eye exam: 06/2023 Last Podiatry Exam: Does not see a Sponge Maker Most recent HbA1c: 8.3%, 12/05/2024 Random Glucose- 174 mg/dL, Today Sifter Operator Required: No Accompanied by: Self / Same As Patient Allergies hydromorphone Allergy (Unknown, Verified 11/13/24 23:35) Unknown infliximab [From Remicade] Allergy (Unknown, Verified 11/13/24 23:35) Unknown sulfamethoxazole [From Bactrim] Allergy (Unknown, Verified 11/13/24 23:35) Unknown trimethoprim [From Bactrim] Allergy (Unknown, Verified 11/13/24 23:35) Unknown HPI Comments Details: 34 YO F with type 1 diabetes on an insulin pump is seen today in follow-up she was last seen 07/31/24. Initially diagnosed with T1DM BANDAR 02/2019 when presented with hyperglycemia Hemoglobin A1c 12/05/24 %, 07/31/24 % 05/23/24 8.5% Was initially started on treatment with metformin . She was started on insulin pump fall 2022. Pre pump A1C was 11.4 %. Back up pump failure Plan Lantus 36 units with premeal humalog Dexcom average glucose: 195 14 day continuous glucose monitor report reviewed Glucose Managment indicator 8 % Days with CGM data 89.7 % TIme in ranges: Twenty % very high (above 250) 34 % high ?(181-250) 46 % in range ?(70-180] 0 % low (69-55) 0 % ?very low (below 54) Interpretation [total carbs entered 53 some postprandial highs when she does not enter carbs because she is fearful of dropping low, when she carbs can set her bili after the meal that does drop her slightly low ] she is especially concerned about dropping low at night Total daily dose of insulin 34.7 Basal 82% 28.3 units bolus 18% 6.4 units Backup insulin plan Lantus 36 with pre meal insulin Basal rate(s) (units/hour) : 12 AM to 12 AM 1.1 units / hr Bolus setting Insulin Carbohydrate Ratio (s) 12 AM to 6 AM 1:12 6 AM to 12 PM 1:6.5 12:AM to 12 AM 1:7.5 Correction Factor / Sensitivity Factor 12 AM to 12 AM ??1:55 NEW 1:65 Active Insulin Time:? 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 Treats lows with OJ . Checks sugar after to ensure it is rising. Family history of autoimmunity . Sister has Graves DX No retinopathy: Has eyes checked yearly, last eye exam 07/2023, scheduled in April Has neuropathy, symptoms are: numbness, tingling, pain no cramping She is followed by neurology and was recently seen in the ER and given Ativan for sleep. No nephropathy, Not on ION/ARB. 01/2024: microalbumin 14, 11/13/24 eGFR >60 Has HLD, on statin. 107 01/2024 Denies history of CAD. Had diabetes education. Diet/Carb counting: yes Prior episodes of DKA: April 2024 Had normal sugars but felt poorly and tested mod ketones->Referred to ER by our office and was admitted to the hospital Denies prior severe episodes of hypoglycemia requiring help or hospitalization. Had recent elevated liver function tests AST 76 ALT 108 Will forward labs to her GI provider at [facility] [phone] [facility] screen Fibrosis-4 (Fib-4) Index for liver fibrosis (calculated on lab work done: 10/2024) 0.84 points Advanced fibrosis excluded Approximate Fibrosis stage Chela 0-1 *Use with caution in patients <35 or >65 years old, as the score has been shown to be less reliable in these patients. Prior Imaging: None available in EHR Action Plan: She is followed by GI medicine Dr. Esteves at [facility] and was asked to schedule a follow up with them to discuss elevated liver function tests. [facility] Medical History (Updated 12/05/24 @ 08:38 by Bell Tomlin NP) Neuropathy Crohn disease Uncontrolled type 1 diabetes mellitus with hyperglycemia, with long-term current use of insulin Surgical History Hx of section Hx of resection of small bowel Family History Mother History of hypertension Hyperlipidemia Father History of hypertension Social History Alcohol intake: current Alcohol intake frequency: does not drink Patient Tobacco Use Status: Never used Tobacco Physical Exam Vital Signs: Last Vital Signs Pulse 98 12/05/24 14:38 BP 126/76 12/05/24 14:38 Pulse Ox 96 12/05/24 14:38 Oxygen Delivery Method Room Air 12/05/24 14:38 BMI result Body Mass Index 24.6 Const Other: Absence of Cushingoid features. Absence of acromegalic features. Neck exam reveals nl size thyroid about 15 gms. No thyroid nodules palpable. No carotid bruits present. Lungs CTA. Heart S1 S2, Reg R/R. No M/R G. Skin exam reveals absence of vitiligo or acanthosis nigricans. No edema Visual exam of foot performed. No ulcerations or open lesions. No inter digit maceration or fissuring. No onychomycosis, no callouses. Sensation intact to monofilament exam. Vibratory sensation is normal with 128 Hz tuning fork. Office Procedures Glucose Monitoring Details Details: see [facility] [id number] - Glucose monitoring, continuous-physician I&R Procedure code (CPT) selection complete Results AMB Hemoglobin A1c AMB Hemoglobin A1c 8.3 % Last Edit by DAYSI Romero on 12/05/24 15:02 Results Reviewed Results Reviewed: Laboratory Last Values Glucose (Clinic) 174 mg/dL (60-115) H 12/05/24 14:44 Laboratory Tests 11/13/24 23:36 Estimated GFR > 60 Total Bilirubin 0.3 AST 76 H ALT 108 H Alkaline Phosphatase 109 Total Protein 6.8 Albumin 3.8 Assessment & Plan Assessment & Plan (1) Uncontrolled type 1 diabetes mellitus with hyperglycemia, with long-term current use of insulin: Code(s): E10.65 - Type 1 diabetes mellitus with hyperglycemia Category: Medical Plan: 34-year-old type 1 bandar diabetic with neuropathy and gastroparesis on an insulin pump with an A1c 8.3% 12/05/2024. Achieving a target A1c of 7% has been difficult with this patient given her gastroparesis. She is not able to always predict what she is able to eat and so dosing pre meal can be difficult for her. Correction factor adjusted so that she does not drop quite so low based on her glucose readings. She will continue to try to enter carbohydrates. (2) Elevated liver function tests: Code(s): R79.89 - Other specified abnormal findings of blood chemistry Category: Medical Plan: She was recently in the ER and had elevated liver function tests. A copy of t his note will be sent to her GI provider at [facility]. She has no known prior history of elevated liver function tests and fib 4 calc ruled out fibrosis. (3) Neuropathy: Code(s): G62.9 - Polyneuropathy, unspecified Category: Medical Plan: Has follow up with Neurology (4) Gastroparesis: Code(s): K31.84 - Gastroparesis Category: Medical Plan: Patient with Crohn's, gastroparesis and recently elevated liver function tests. She was asked to follow up with her GI provider. Fib calc was negative for fibrosis. The patient had an opportunity to ask questions regarding treatment plan. The patient expressed understanding and agreement with the above treatment plan. The patient is aware they should contact our office by phone for worsening glucose readings or for any low blood sugars which may warrant a change in diabetes medication. Compliance is encouraged with medications and any followup testing/consults which may have been ordered. Orders: Orders AMB Hemoglobin A1c Today E10.65 - Type 1 diabetes mellitus with hyperglycemia AMB Glucose Monitoring Today E10.65 - Type 1 diabetes mellitus with hyperglycemia Patient Instructions: Symptoms of DKA (diabetic ketoacidosis): early: frequent urination, dry mouth, fatigue, feeling ill, severe symptoms: ketones in the urine, abdominal pain, n ausea, vomiting and weakness. It is important to hydrate with sugar free liquids every 15-30 minutes and bring the sugars down to normal levels. If you are moderate or severe with ketones or unable to bring glucose to less than 200, go to the emergency room. Written handout was given on DKA. Take 15 carb carbohydrate grams to treat a low sugar (3-4 glucose tablets, half a glass of juice or 15 carbohydrate grams of soft candy such as gummie snacks). Recheck your sugar in 15 minutes and re-treat again with 15 carbohydrate grams if low or still with symptoms. Do not drive a car or operate machinery if you do not know what your blood sugar is, if it is low or in excess of 300. The patient was counseled to achieve a target A1C of 7% (154 avg). Fasting blood sugars should be 90-130 in the morning and less than 180 two hours after meals. Reviewed the relationship between poor diabetic control and the development of complications. Troubleshooting after starting new pod or inserting new insulin set: Occlusion, adhesive tape sensitivity, redness Check BG 2 hours after site change Safety information: Importance of a backup plan, for manual injections, proper prescriptions and emergency supplies ketone strips, and rules for testing for ketones Coding Level of Care Code Est Pt Level 5 (20908) Diagnoses Uncontrolled type 1 diabetes mellitus with hyperglycemia, with long-term current use of insulin E10.65 Elevated liver function tests R79.89 Neuropathy G62.9 Gastroparesis K31.84 CPT Codes Details - CPT: 26381 - Glucose monitoring, continuous-physician I&R ([id number]) Time Spent (min) 60 Comment Reviewing labs/provider notes, glucose sensor/pump reports, face to face, chart doc
[2024-12-05 14:38] VITALS: BP 126/76; PULSE 98; O2SAT 96; BMI 24.6
[2024-12-05 14:48] LABS: Glucose, Whole Blood 174 mg/dL (60-115)
--- OUTSIDE RECORDS SUMMARY | 2024-12-05 14:51 | XMS_ITS | Clinical Summary ---
Author Organization [facility] it Address [address] [place] [address] Care Team Providers Care Human Performance Professor Name Role Phone Unavailable Primary Care Provider Unavailabl e Social History Tobacco Use Types Packs/Day Years Used Date Smoking Tobacco: Never Assessed Comments Unknown Sex and Gender Information Value Date Recorded Sex Assigned at Not on file Legal Sex Female 12:20 AM EST Gender Identity Not on file Sexual Orientation Not on file Plan of Treatment Health Maintenance Due Date Last Done Comments DTaP,Tdap,and Td Vaccines (1 - Tdap) 01/17/2007 Hepatitis B Vaccines (1 of 3 - 19+ 3-dose series) 01/17/2007 Cervical Cancer Screening: P ap Smear 01/17/2009 Depression Screening 09/17/2022 HIV Screening 09/17/2022 Hepatitis C Screening 09/17/2022 Social Influencers of Health Screening 09/17/2022 COVID-19 Vaccine ( - 2023-2 5 season) 2024 Influenza Vaccine (#1) 2024 HIB Vaccines Aged Out No longer eligi ble based on patient's age to complete this topic HPV Vaccines Aged Out No longer eligi ble based on patient's age to complete this topic Hepatitis A Vaccines Aged Out No long er eligible based on patient's age to complete this topic IPV Vaccines Aged Out No longer eligi ble based on patient's age to complete this topic MMR Vaccines Aged Out No longer eligi ble based on patient's age to complete this topic Meningococcal ACWY Vaccine Aged Out N o longer eligible based on patient's age to complete this topic Meningococcal B Vacine Aged Out No lo nger eligible based on patient's age to complete this topic Pneumococcal Vaccine: Pediat rics (0 to 5 Years) and At-Risk Patients (6 to 64 Years) Aged Out No longer eligible b ased on patient's age to complete this topic RSV Immunization Patients Un harjit 20 months Aged Out No longer eligible b ased on patient's age to complete this topic Varicella Vaccines Aged Out No longer eligible based on patient's age to complete this topic
== END 2024-12-05 15:14 | disposition home or self-care (01) ==
PROVIDERS: PCP Internal Medicine; Visit Provider Nurse Practitioner Adult Health
DX: E10.65 Type 1 diabetes mellitus with hyperglycemia (principal); R79.89 Other specified abnormal findings of blood chemistry; G62.9 Polyneuropathy, unspecified; K31.84 Gastroparesis
CPT/HCPCS: 95251; 99215; 99417

== ENCOUNTER → 2024-12-05 14:30 | Outpatient (BNVA) | payer OTHER, SELFPAY | PROVIDERS: PCP Internal Medicine; Visit Provider Nurse Practitioner Adult Health | DX: Z46.81 Encounter for fitting and adjustment of insulin pump (principal); E10.65 Type 1 diabetes mellitus with hyperglycemia; E10.40 Type 1 diabetes mellitus with diabetic neuropathy, unspecified; R79.89 Other specified abnormal findings of blood chemistry; K31.84 Gastroparesis | CPT/HCPCS: 82947; 83036; 99212 ==

== ENCOUNTER 2025-03-19 10:07 | Outpatient (AMB) | payer OTHER, SELFPAY ==
--- NOTE | 2025-03-19 07:56 | MHC.OFFVIS ---
Vital Signs 03/19/25 10:11 Height 5 ft 1 in Weight 128 lb 1.417 oz BMI 24.2 BP 110/70 Blood Pressure Location Rt brachial Position Sitting Pulse 102 H Pulse Source Pulse Oximeter Pulse Oximetry (%) 97 Oxygen Delivery Method Room Air Intake Visit Reasons: T1DM Intake Note: Patient presents today for a follow-up on Type 1 Diabetes Mellitus: Last Diabetic Eye exam: OVER DUE? Last Podiatry Exam: Does not see a Engraver Machine Most recent HbA1c: 8.2% Random Glucose- 250 mg/dL, Today Contact Worker Required: No Accompanied by: Self / Same As Patient Allergies hydromorphone Allergy (Unknown, Verified 03/19/25 10:12) Unknown infliximab [From Remicade] Allergy (Unknown, Verified 03/19/25 10:12) Unknown sulfamethoxazole [From Bactrim] Allergy (Unknown, Verified 03/19/25 10:12) Unknown trimethoprim [From Bactrim] Allergy (Unknown, Verified 03/19/25 10:12) Unknown HPI Comments Details: 34 YO F with type 1 diabetes on an insulin pump who is seen today in follow-up. She was last seen 12/05/24 with the an A1c of 8.3% 03/19/2025 8.2%. Initially diagnosed with T1DM BANDAR 02/2019 when presented with hyperglycemia Was initially started on treatment with metformin . She was started on insulin pump fall 2022. Pre pump A1C was 11.4 %. Back up pump failure Plan Lantus 36 units with premeal humalog Dexcom average glucose: 227 14 day continuous glucose monitor report reviewed Glucose Managment indicator 8.8 % Days with CGM data 90 % TIme in ranges: 34 % very high (above 250) 33 % high ?(181-250) 33 % in range ?(70-180] 0 % low (69-55) 0 % ?very low (below 54) Interpretation : She is having a few lows overnight she is having postprandial increases. She is in auto mode 74% of the time manual 26 % she reports that she is sometimes kicked out of auto mode due to higher glucose she is entering an 98.5 carbs which she states his accurate Total daily dose 54.9 Basal 69% 38.1 bolus 31% 16.8 Basal rate(s) (units/hour) : 12 AM to 6 AM 1.0 units / hr 06:00 to 12 am 1.5 Bolus setting Insulin Carbohydrate Ratio (s) 12 AM to 6 AM 1:12 6 AM to 12 PM 1:6.5 new 6 12:AM to 12 AM 1:7.5 new 6 Correction Factor / Sensitivity Factor 12 AM to 12 AM ??1:65 Active Insulin Time:? 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 gastroparesis for which she is taking Carafate a 1000 mg twice daily and Reglan 10 mg t.i.d.. Treats lows with OJ . Checks sugar after to ensure it is rising. Family history of autoimmunity . Sister has Graves DX No retinopathy: Has eyes checked yearly, last eye exam 07/2023, she will call to reschedule Has neuropathy, symptoms are: numbness, tingling, pain no cramping She is followed by neurology c/o cramping in her left foot No nephropathy, Not on ION/ARB. 11/13/24 eGFR >60 microalbumin 14 Has HLD, on statin. 107 01/2024 Denies history of CAD. Had diabetes education. Diet/Carb counting: yes Prior episodes of DKA: April 2024 Had normal sugars but felt poorly and tested mod ketones->Referred to ER by our office and was admitted to the hospital Denies prior severe episodes of hypoglycemia requiring help or hospitalization. Had recent elevated liver function tests AST 76 ALT 108 Will forward labs to her GI provider at [facility] [phone] [facility] screen Fibrosis-4 (Fib-4) Index for liver fibrosis (calculated on lab work done: 10/2024) 0.84 points Advanced fibrosis excluded Approximate Fibrosis stage Chela 0-1 *Use with caution in patients <35 or >65 years old, as the score has been shown to be less reliable in these patients. Prior Imaging: None available in EHR Action Plan: She is followed by GI medicine Dr. Esteves at [facility] lft's had been elevated in october Per patient repeat through [facility] were in normal range, [facility] Medical History (Updated 12/05/24 @ 08:38 by Bell J Sada, GOLD TOOLER) Neuropathy Crohn disease Uncontrolled type 1 diabetes mellitus with hyperglycemia, with long-term current use of insulin Surgical History Hx of section Hx of resection of small bowel Family History Mother History of hypertension Hyperlipidemia Father History of hypertension Social History Alcohol intake: current Alcohol intake frequency: does not drink Patient Tobacco Use Status: Never used Tobacco Physical Exam Vital Signs: Last Vital Signs Pulse 102 H 03/19/25 10:11 BP 110/70 03/19/25 10:11 Pulse Ox 97 03/19/25 10:11 Oxygen Delivery Method Room Air 03/19/25 10:11 BMI result Body Mass Index 24.2 Const Other: Absence of Cushingoid features. Absence of acromegalic features. Neck exam reveals nl size thyroid about 15 gms. No thyroid nodules palpable. Heart S1 S2, Reg R/R. No M/R G. Skin exam reveals absence of vitiligo or acanthosis nigricans. Visual exam of foot performed. No ulcerations or open lesions. No inter digit maceration or fissuring. No onychomycosis, no callouses. Sensation intact to monofilament exam. Vibratory sensation is normal with 128 Hz tuning fork. Office Procedures Glucose Monitoring Details Details: see [facility] [id number] - Glucose Monitoring, continuous Procedure code (CPT) selection complete Results AMB Hemoglobin A1c AMB Hemoglobin A1c 8.2 % Last Edit by DAYSI Douglas on 03/19/25 10:51 Results Reviewed Results Reviewed: Laboratory Last Values Glucose (Clinic) 250 mg/dL (60-115) H 03/19/25 10:19 Assessment & Plan Assessment & Plan (1) Uncontrolled type 1 diabetes mellitus with hyperglycemia, with long-term current use of insulin: Code(s): E10.65 - Type 1 diabetes mellitus with hyperglycemia Category: Medical Plan: 35-year-old type 1 diabetic with gastroparesis and neuropathy on an Omnipod insulin pump with the an A1c of 8.2%. Pre pump her A1cs had historically run 13%. We will make further adjustments to her pump today which include shortened active insulin time and decreasing the ratio of insulin to carb so that she gets more preprandial insulin. Target was increased to 130 overnight because she does reports some lows though none in the last 2 weeks. She will schedule an ophthalmology appointment. Continue to follow up with Gastroenterology for Crohn's and gastroparesis. labs ordered including magnesium as she has been having some muscle cramping The patient had an opportunity to ask questions regarding treatment plan. The patient expressed understanding and agreement with the above treatment plan. The patient is aware they should contact our office by phone for worsening glucose readings or for any low blood sugars which may warrant a change in diabetes medication. Compliance is encouraged with medications and any followup testing/consults which may have been ordered. Orders: Orders Basic Metabolic Panel Today E10.65 - Type 1 diabetes mellitus with hyperglycemia AMB Hemoglobin A1c Today E10.65 - Type 1 diabetes mellitus with hyperglycemia, Z13.9 - Encounter for screening, unspecified Magnesium Today E10.65 - Type 1 diabetes mellitus with hyperglycemia AMB Glucose Monitoring Today E10.65 - Type 1 diabetes mellitus with hyperglycemia Referrals Podiatry Referral G62.9 - Polyneuropathy, unspecified Medications: New Baqsimi 3 mg/actuation (glucagon) 3 mg intranasal ONCE 30 days PRN 2 ea 1RF unresponsive hypoglycemia MDD 6 mg NS E10.65 - Type 1 diabetes mellitus with hyperglycemia Changed From acetone (urine) test (Ketone Urine Test strips) As directed 50 ea 4RF To acetone (urine) test (Ketone Urine Test strips) qid for glucose over 250, nausea or vomiting 50 ea 4RF From insulin lispro DIFFUSE UP TO 60 UNITS PER DAY VIA INSULIN PUMP SUBCUTANEOUSLY DAILY 20 mL 7RF To insulin lispro DIFFUSE UP TO 80 UNITS PER DAY VIA INSULIN PUMP SUBCUTANEOUSLY DAILY 30 days 30 mL 7RF NS Refilled blood-glucose sensor (Dexcom G6 Sensor device) As directed change every 10 days 3 ea 11RF diabetes mellitus blood-glucose transmitter (Dexcom G6 Transmitter device) As directed every 3 months 1 ea 3RF Discontinued insulin pump cart,automated,BT Discontinued Reason: Doctor's Order DIRECTED CHANGE EVERY 72 HOURS 10 ea 11RF Patient Instructions: Symptoms of DKA (diabetic ketoacidosis): early: frequent urination, dry mouth, fatigue, feeling ill, severe symptoms: ketones in the urine, abdominal pain, nausea, vomiting and weakness. It is important to hydrate with sugar free liquids every 15-30 minutes and bring the sugars down to normal levels. If you are moderate or severe with ketones or unable to bring glucose to less than 200, go to the emergency room. Troubleshooting after starting new pod or inserting new insulin set: Occlusion, adhesive tape sensitivity, redness Check BG 2 hours after site change Safety information: Importance of a backup plan, for manual injections, proper prescriptions and emergency supplies ketone strips, and rules for testing for ketones Coding Level of Care Code Est Pt Level 4 (43252) Complex EM visit Add On G2211 Diagnoses Uncontrolled type 1 diabetes mellitus with hyperglycemia, with long-term current use of insulin E10.65 CPT Codes Details - CPT: 23156 - Glucose Monitoring, continuous ([id number]) Time Spent (min) 30 Comment Time spent reviewing labs/provider notes, face to face, chart doc
[2025-03-19 10:11] VITALS: BP 110/70; PULSE 102; O2SAT 97; BMI 24.2
[2025-03-19 10:23] LABS: Glucose, Whole Blood 250 mg/dL (60-115)
--- OUTSIDE RECORDS SUMMARY | 2025-03-19 11:45 | XMS_ITS | Clinical Summary ---
Author Organization [facility] it Address [address] [place] [address] Care Team Providers Care Licensed Nursing Assistant Name Role Phone Unavailable Primary Care Provider [...] - 2023-2 5 season) 2024 Influenza Vaccine (Season Ended) 2025 HIB Vaccines Aged Out No longer eligi [...] age to complete this topic Meningococcal B Vaccine Aged Out No l onger eligible based on patient's age to complete [...]
== END 2025-03-19 11:27 | disposition home or self-care (01) ==
LOC: HO.ENCR 10:08
PROVIDERS: PCP Internal Medicine; Visit Provider Nurse Practitioner Adult Health
DX: Z13.9 Encounter for screening, unspecified (principal); E10.65 Type 1 diabetes mellitus with hyperglycemia
CPT/HCPCS: 99214

== ENCOUNTER → 2025-03-19 10:07 | Outpatient (BNVA) | payer OTHER, SELFPAY | PROVIDERS: PCP Internal Medicine; Visit Provider Nurse Practitioner Adult Health | DX: E10.65 Type 1 diabetes mellitus with hyperglycemia (principal); E10.42 Type 1 diabetes mellitus with diabetic polyneuropathy; Z79.4 Long term (current) use of insulin; Z96.41 Presence of insulin pump (external) (internal) | CPT/HCPCS: 82947; 83036; 95250; 99212 ==

== ENCOUNTER 2025-06-19 09:51 | Outpatient (AMB) | payer OTHER, SELFPAY ==
--- NOTE | 2025-06-19 09:55 | MHC.OFFVIS ---
Vital Signs 06/19/25 09:59 Height 5 ft 1 in Weight 128 lb 8.472 oz BMI 24.3 BP 122/76 Blood Pressure Location Rt brachial Position Sitting Pulse 66 Pulse Source Pulse Oximeter Pulse Oximetry (%) 96 Oxygen Delivery Method Room Air Intake Visit Reasons: T1DM Intake Note: Patient present today for Type 1 Diabetes Mellitus Last Diabetic eye exam: Last exam was about 2 years ago, she will be scheduling appt today. Last Podiatry Visit: Doesn't have one and would like a referral. Random Glucose: 212 mg/dl HgA1C: 8.3% Quality Assurance Assistant Required: No Accompanied by: Self / Same As Patient Allergies hydromorphone Allergy (Unknown, Verified 06/19/25 10:03) Unknown infliximab (From Remicade) Allergy (Unknown, Verified 06/19/25 10:03) Unknown sulfamethoxazole (From Bactrim) Allergy (Unknown, Verified 06/19/25 10:03) Unknown trimethoprim (From Bactrim) Allergy (Unknown, Verified 06/19/25 10:03) Unknown Medication List - Last Reconciled 06/19/25 by Yamile Haider MD acetone (urine) test (Ketone Urine Test strips) qid for glucose over 250, nausea or vomiting albuterol sulfate 90 mcg/actuation (Ventolin HFA) 1 puff inhalation QID PRN atorvastatin 10 mg PO DAILY Baqsimi 3 mg/actuation (glucagon) 3 mg intranasal ONCE PRN 30 days MDD 6 mg NS blood sugar diagnostic (FreeStyle Lite Strips) As directed prn sensor failure, confirm glucose up to qid blood-glucose meter (FreeStyle Lite Meter kit) As for use with test strips blood-glucose sensor (Vine Girls G6 Sensor device) As directed change every 10 days blood-glucose transmitter (CloudTagscom G6 Transmitter device) As directed every 3 months blood-glucose,riding teacher,cont (Dexcom G6 Dock Grader) As directed buprenorphine-naloxone 2-0.5 mg (Suboxone) 1 film sublingual DAILY buprenorphine-naloxone 8-2 mg (Suboxone) 10 mg sublingual DAILY buspirone 15 mg PO TID fluconazole 150 mg PO QWEEK insulin degludec (Tresiba FlexTouch U-100 insulin) 32 units (0.32 mL) subcut ONCE PRN 30 days MDD 32 insulin lispro DIFFUSE UP TO 80 UNITS PER DAY VIA INSULIN PUMP SUBCUTANEOUSLY DAILY 30 days NS insulin pump cart,auto,BT,G6/7 (Omnipod 5 G6-G7 Pods (Gen 5) subcutaneous cartridge) change every 3 days insulin pump cart,auto,BT-cntr (Omnipod 5 G6 Intro Kit (Gen 5) subcutaneous cartridge with controller) As directed insulin syringe-needle U-100 As directed up to quid for pump failure or glucose correction lancets (FreeStyle Lancets) 4 times a day prn sensor failure or to confirm glucose lidocaine 5% topical TID PRN loratadine 10 mg PO DAILY norethindrone (contraceptive) 0.35 mg PO DAILY omeprazole 40 mg PO ondansetron HCl 4 mg PO Q8H PRN pen needle, diabetic (BD Yoselyn 2nd Gen Pen Needle) As directed tid prn pump failure pregabalin 150 mg PO BID HPI Comments Details: 35 YO F with type 1 diabetes mellitus who is here for follow up today. Last seen March 2025 by Bell Jimenez APRN. She is on an Omnipod 5 with Dexcom G6, with Humalog U 100 insulin. 12/05/24 A1c of 8.3% 03/19/2025 8.2%. 06/19/2025 POC 8.3% History of type 1 diabetes mellitus. Initially diagnosed with T1DM BANDAR 02/2019 when presented with hyperglycemia Was initially started on treatment with metformin . She was started on insulin pump fall 2022. Pre pump A1C was 11.4 %. Omnipod 5 with Dexcom G6 downloaded from June 06 to 06/19/2025 Within target range 47% Hi 35% Very high 18% Low 0% Very low 0% G [place] and/a Time CGM active 68.1% Average blood glucose 193 mg/dL Coefficient of variation 30.1% Interpretation: She has hyperglycemia with a she is not entering carbs consistently or pre bolusing. Between June 13 in June 15 she also did not have the sensor on her. Insulin usage Total insulin per day 28.7 units Total basal per day 24.1 units, 84% Total bolus per day 4.6 units, 16% Automated mode 76% Manual mode 24% Carbs per day 29.4 g Entries per day 1.7 Back up pump failure Plan Lantus 30 units with premeal humalog Has backup Lantus Has a insulin syringes Has urine ketone strips Has nasal Baqsimi spray Basal rate(s) (units/hour) : 12 AM to 6 AM 1.0 units / hr 06:00 to 12 am 1.5 Bolus setting Insulin Carbohydrate Ratio (s) 12 AM to 6 AM 1:12 6 AM to 12 PM 1: 6 12:AM to 12 AM 1: 6 Correction Factor / Sensitivity Factor 12 AM to 12 AM ??1:65 Active Insulin Time:? 4 hours new 3 Target(s): 12 AM to 6 AM 130mg/dL 06:00 to 12 AM 130 correct above 130 mg/dL She is working with a senior human resources representative Crohn's is doing much better on Skyrizi. gastroparesis for which she is taking Carafate a 1000 mg twice daily and Reglan 10 mg t.i.d.. Treats lows with OJ . Checks sugar after to ensure it is rising. Family history of autoimmunity . Sister has Graves DX No retinopathy: , last eye exam 07/2023, she will call to reschedule Has neuropathy, symptoms are: numbness, tingling, pain no cramping She is followed by neurology c/o cramping in her left foot , does not have theatrical trouper No nephropathy, Not on ION/ARB. 11/13/24 eGFR >60 microalbumin 14 Has HLD, on atorvastatin 10 mg daily. LDL. 107 01/2024 Denies history of CAD. Had diabetes education. Diet/Carb counting: yes Prior episodes of DKA: April 2024 Had normal sugars but felt poorly and tested mod ketones->Referred to ER by our office and was admitted to the hospital Denies prior severe episodes of hypoglycemia requiring help or hospitalization. Had recent elevated liver function tests AST 76 ALT 108 October 2024 sees GI provider at [facility] [phone] [facility] screen Fibrosis-4 (Fib-4) Index for liver fibrosis (calculated on lab work done: 10/2024) 0.84 points Advanced fibrosis excluded Approximate Fibrosis stage Chela 0-1 *Use with caution in patients <35 or >65 years old, as the score has been shown to be less reliable in these patients. Prior Imaging: None available in EHR Action Plan: She is followed by GI medicine Dr. Esteves at [facility] lft's had been elevated in october Per patient repeat through [facility] were in normal range, Physical exam General: sitting comfortably in no acute distress HEENT: normocephalic/atraumatic, EOM intact, moist oral mucosa Neck: supple, symmetrical, no thyromegaly , no dorsocervical or supraclavicular fat pads Cardiac: normal heart sounds Pulm: normal breath sounds B/L, no added breath sounds Abd: not distended, no tenderness Extremities: no edema, no signs of myxedema Neuro: AAO x3, Speech: normal, no facial droop, moving all 4 extremities Skin: no rash Foot exam: intact sensation to monofilament, intact pulses, intact vibration Laboratory Tests 01/15/24 01/15/24 11/13/24 07:20 07:25 23:36 Hgb 12.4 Hct 37.0 Plt Count 314 Creatinine 0.58 Estimated GFR > 60 Glucose (Clinic) Hgb A1c (Clinic) AST 76 H ALT 108 H Triglycerides 209 H Cholesterol 179 LDL Cholesterol, Calc 107 H HDL Cholesterol 31 L TSH 1.32 Free T4 0.80 Urine Creatinine 123.19 Urine Microalbumin 14.0 Microalb/Creat Ratio 11.3 03/19/25 06/19/25 10:50 10:06 Hgb Hct Plt Count Creatinine Estimated GFR Glucose (Clinic) 212 H Hgb A1c (Clinic) 8.2 H AST ALT Triglycerides Cholesterol LDL Cholesterol, Calc HDL Cholesterol TSH Free T4 Urine Creatinine Urine Microalbumin Microalb/Creat Ratio [facility] Medical History (Updated 06/19/25 @ 10:33 by Yamile Haider MD) Insulin pump in place Dyslipidemia due to type 1 diabetes mellitus Neuropathy Crohn disease Uncontrolled type 1 diabetes mellitus with hyperglycemia, with long-term current use of insulin Surgical History Hx of section Hx of resection of small bowel Family History Mother History of hypertension Hyperlipidemia Father History of hypertension Social History Alcohol intake: current Alcohol intake frequency: does not drink Patient Tobacco Use Status: Never used Tobacco Physical Exam Vital Signs: Last Vital Signs Pulse 66 06/19/25 09:59 BP 122/76 06/19/25 09:59 Pulse Ox 96 06/19/25 09:59 Oxygen Delivery Method Room Air 06/19/25 09:59 BMI result Body Mass Index 24.3 Office Procedures Glucose Monitoring Details Details: see HPI 73109 - Glucose monitoring, continuous-physician I&R Procedure code (CPT) selection complete Results AMB Hemoglobin A1c AMB Hemoglobin A1c 8.3 % Last Edit by DAYSI Douglas on 06/19/25 10:15 Results Reviewed Results Reviewed: Laboratory Last Values Glucose (Clinic) 212 mg/dL (60-115) H 06/19/25 10:06 Hgb A1c (Clinic) 8.3 % (4.0-6.0) H 06/19/25 10:09 Assessment & Plan Assessment & Plan (1) Uncontrolled type 1 diabetes mellitus with hyperglycemia, with long-term current use of insulin: Code(s): E10.65 - Type 1 diabetes mellitus with hyperglycemia Category: Medical Plan: 35-year-old patient with type 1 diabetes mellitus with gastroparesis and neuropathy on an Omnipod 5 insulin pump with Dexcom G6 with the Humalog U 100 with the an A1c of 8.3% 06/19/2025 POC which is about stable from March 2025 8.2%. Pre pump her A1cs had historically run 13%. Insulin pump and Dexcom data was reviewed today, which shows that she has not been entering carbs consistently. She does describe that over the past few weeks she has been having flare ups of her Crohn's, and she is going to reach out to her GI doctor but because of that she has not been able to exactly tell how much she is going to end up eating and then sometimes does not enter the carbs or pre bolus because of fear of hypoglycemia later if she does not end up eating the meal. I agree with reaching out to GI, but did tell her to try to estimate as much as possible and give the bolus as soon as she has a good sense of how much she is eating. She is also in automated mode about 75% of the time, she forgets to go back from manual 2 automated mode sometimes, discussed importance of turning back automated mode on. At this point we are not changing any pump settings today. Plan: -last eye appointment 2022, overdue, She will schedule an ophthalmology appointment. -Continue to follow up with Gastroenterology for Crohn's and gastroparesis. -will be due for annual labs prior to next follow up, ordered -podiatry referral placed again patient had not heard from them in the past The patient had an opportunity to ask questions regarding treatment plan. The patient expressed understanding and agreement with the above treatment plan. The patient is aware they should contact our office by phone for worsening glucose readings or for any low blood sugars which may warrant a change in diabetes medication. Compliance is encouraged with medications and any followup testing/consults which may have been ordered. (2) Dyslipidemia due to type 1 diabetes mellitus: Code(s): E10.69 - Type 1 diabetes mellitus with other specified complication; E78.5 - Hyperlipidemia, unspecified Category: Medical Plan: LDL goal would be less than 70 mg/dL. Her LDL was elevated from 2023. No recent lipid panel in the chart. She is on atorvastatin 10 mg daily. Plan: -ordered lipid panel to be done with the next set of labs -continue atorvastatin 10 mg daily (3) Insulin pump in place: Code(s): Z96.41 - Presence of insulin pump (external) (internal) Category: Medical Plan: Back up pump failure Plan Lantus 30 units with premeal humalog Has backup Lantus Has a insulin syringes Has urine ketone strips Has nasal Baqsimi spray Plan I spent 30 minutes in reviewing the record, seeing the patient and documenting in the medical record. Orders: Orders AMB Hemoglobin A1c Today E10.65 - Type 1 diabetes mellitus with hyperglycemia, Z13.9 - Encounter for screening, unspecified Creatinine Today E10.65 - Type 1 diabetes mellitus with hyperglycemia Free T4 (Free Thyroxine) Today E10.65 - Type 1 diabetes mellitus with hyperglycemia Lipid Panel Today E10.65 - Type 1 diabetes mellitus with hyperglycemia Thyroid Stimulating Hormone Today E10.65 - Type 1 diabetes mellitus with hyperglycemia Complete Blood Count no Diff Today E10.65 - Type 1 diabetes mellitus with hyperglycemia AMB Glucose Monitoring Today E10.65 - Type 1 diabetes mellitus with hyperglycemia Microalbumin, Random (w Creat) Today E10.65 - Type 1 diabetes mellitus with hyperglycemia Referrals Podiatry Referral E10.65 - Type 1 diabetes mellitus with hyperglycemia Patient Instructions: Do fasting blood work and urien test prior to next appointment See the eye doctor Podiatry referral sent Coding Level of Care Code Est Pt Level 4 (52478) Diagnoses Uncontrolled type 1 diabetes mellitus with hyperglycemia, with long-term current use of insulin E10.65 Dyslipidemia due to type 1 diabetes mellitus E10.69; E78.[address] Z96.41 CPT Codes Details - CPT: 09014 - Glucose monitoring, continuous-physician I&R ([id number]) Time Spent (min) 30
[2025-06-19 09:59] VITALS: BP 122/76; PULSE 66; O2SAT 96; BMI 24.3
[2025-06-19 10:10] LABS: Glucose, Whole Blood 212 mg/dL (60-115)
--- OUTSIDE RECORDS SUMMARY | 2025-06-19 10:38 | XMS_ITS | Clinical Summary ---
Author Organization [facility] it Address [address] [place] [address] Care Team Providers Care Baker Name Role Phone Unavailable Primary Care Provider [...] Screening: P ap Smear 01/17/2009 Depression Screening 10/15/2024 COVID-19 Vaccine (2023-2 5 season) 2025 Influenza Vaccine (#1) 2025 HIB Vaccines Aged Out No longer [...] 5 Years) and At-Risk Patients (6 to 49 Years) Aged Out No longer eligible b ased on patient's age to complete this topic RSV Immunization Patients Un harjit 20 months Aged Out No longer eligible b ased on patient's age to complete this topic Varicella Vaccines Aged Out No longer eligible based on patient's age to complete this topic
== END 2025-06-19 10:28 | disposition home or self-care (01) ==
LOC: HO.ENCR 09:51
PROVIDERS: PCP Internal Medicine; Visit Provider Student in an Organized Health Care Education/Training Program
DX: E10.65 Type 1 diabetes mellitus with hyperglycemia (principal); E10.69 Type 1 diabetes mellitus with other specified complication; E78.5 Hyperlipidemia, unspecified; Z96.41 Presence of insulin pump (external) (internal); Z13.9 Encounter for screening, unspecified
CPT/HCPCS: 95251; 99214

== ENCOUNTER → 2025-06-19 09:51 | Outpatient (BNVA) | payer OTHER, SELFPAY | PROVIDERS: PCP Internal Medicine; Visit Provider Student in an Organized Health Care Education/Training Program | DX: E10.65 Type 1 diabetes mellitus with hyperglycemia (principal); E78.5 Hyperlipidemia, unspecified; Z96.41 Presence of insulin pump (external) (internal) | CPT/HCPCS: 82947; 83036; 99212 ==

== ENCOUNTER 2025-07-01 09:58 | Outpatient (AMB) | payer OTHER, SELFPAY ==
[2025-07-01 10:02] VITALS: BMI 25.4
--- NOTE | 2025-07-01 10:02 | A.OFFVIS_ITS ---
Vital Signs 3 07/01/25 10:02 Height 5 ft Weight 130 lb BMI 25.4 Intake Visit Reasons: Type 1 diabetes mellitus with hyperglycemia Intake Note: Cris is a 35 year old female who presents to the office today as a new patient visit referred by her Siebel Architect for Type 1 diabetes mellitus with hyperglycemia. She states her glucose is at 150 at this time and she has experienced numbness and tingling in her left foot. Patient reports occasional pain in the plantar aspect of the left foot and cramping as well Allergies hydromorphone Allergy (Unknown, Verified 07/01/25 10:03) Unknown infliximab (From Remicade) Allergy (Unknown, Verified 07/01/25 10:03) Unknown sulfamethoxazole (From Bactrim) Allergy (Unknown, Verified 07/01/25 10:03) Unknown trimethoprim (From Bactrim) Allergy (Unknown, Verified 07/01/25 10:03) Unknown Medication List - Last Reconciled 07/01/25 by Rajwinder Bower DPM acetone (urine) test (Ketone Urine Test strips) qid for glucose over 250, nausea or vomiting albuterol sulfate 90 mcg/actuation (Ventolin HFA) 1 puff inhalation QID PRN atorvastatin 10 mg PO DAILY Baqsimi 3 mg/actuation (glucagon) 3 mg intranasal ONCE PRN 30 days MDD 6 mg NS blood sugar diagnostic (FreeStyle Lite Strips) As directed prn sensor failure, confirm glucose up to qid blood-glucose meter (FreeStyle Lite Meter kit) As for use with test strips blood-glucose sensor (Dexcom G6 Sensor device) As directed change every 10 days blood-glucose transmitter (Dexcom G6 Transmitter device) As directed every 3 months blood-glucose,commutator inspector,cont (Dexcom G6 Rib Stiffener And Heel Dipper) As directed buprenorphine-naloxone 2-0.5 mg (Suboxone) 1 film sublingual DAILY buprenorphine-naloxone 8-2 mg (Suboxone) 10 mg sublingual DAILY buspirone 15 mg PO TID [diabetic shoes Please provide a pair of diabetic shoes and inserts] fluconazole 150 mg PO QWEEK insulin degludec (Tresiba FlexTouch U-100 insulin) 32 units (0.32 mL) subcut ONCE PRN 30 days MDD 32 insulin lispro DIFFUSE UP TO 80 UNITS PER DAY VIA INSULIN PUMP SUBCUTANEOUSLY DAILY 30 days NS insulin pump cart,auto,BT,G6/7 (Omnipod 5 G6-G7 Pods (Gen 5) subcutaneous cartridge) change every 3 days insulin pump cart,auto,BT-cntr (Omnipod 5 G6 Intro Kit (Gen 5) subcutaneous cartridge with controller) As directed insulin syringe-needle U-100 As directed up to quid for pump failure or glucose correction lancets (FreeStyle Lancets) 4 times a day prn sensor failure or to confirm glucose lidocaine 5% topical TID PRN loratadine 10 mg PO DAILY norethindrone (contraceptive) 0.35 mg PO DAILY omeprazole 40 mg PO ondansetron HCl 4 mg PO Q8H PRN pen needle, diabetic (BD Yoselyn 2nd Gen Pen Needle) As directed tid prn pump failure pregabalin 150 mg PO BID HPI Comments Details: The patient is a 35-year-old female with a past medical history as seen below presents with left foot pain and a diabetic foot exam. The patient reports experiencing intermittent cramping and sensitivity in the left foot for approximately four years. The cramping and insensitivity is localized to the plantar aspect of the 1st metatarsal. She states the symptoms vary in terms of intensity but can cause difficulty walking. She denies any history of injury to the left foot and has not undergone any imaging studies to date. The patient has a history of diabetes mellitus, which has been managed with varying blood glucose levels due to a malfunctioning insulin pod. Recently, her blood glucose levels have stabilized, ranging from 90 to 150 mg/dL. She typically wears sneakers and avoids walking barefoot due to foot sensitivity. Patient's A1c is 8.3. She denies any other pedal concerns. Denies any current nausea, vomiting, fever, or chills. [facility], [facility] Medical History (Updated 07/01/25 @ 10:16 by Rajwinder Bower DPM) Paresthesia of left foot Left foot pain Insulin pump in place Dyslipidemia due to type 1 diabetes mellitus Neuropathy Crohn disease Uncontrolled type 1 diabetes mellitus with hyperglycemia, with long-term current use of insulin Surgical History Hx of section Hx of resection of small bowel Family History Mother History of hypertension Hyperlipidemia Father History of hypertension Social History Alcohol intake: current Alcohol intake frequency: does not drink Patient Tobacco Use Status: Never used Tobacco Review of Systems Const Details: - Neurological: Reports intermittent cramping and sensitivity in the left foot for four years. - Musculoskeletal: Denies any history of injury to the left foot. - Endocrine: Reports improved blood glucose control with levels between 90 and 150 mg/dL. All systems reviewed & are unremarkable except as noted in HPI and below Physical Exam Vital Signs: BMI result Body Mass Index 25.4 Extrem Other: Bilateral lower extremity focused foot exam: Derm: No open lesions abrasions or wounds noted. Skin supple and turgor intact. No clinical signs of infection. Toenails noted to be within normal length and thickness. Vasc: DP/PT pulses palpable. Capillary refill time less than 3 seconds. Temperature gradient warm to warm. Pedal hair absent. No varicosities noted. No edema noted. Neuro: Protective sensation is grossly intact upon monofilament testing. MSK: Mild sensitivity noted to the plantar aspect of the left 1st metatarsal upon palpation. Range of motion of the left forefoot slightly reduced in comparison to the right foot due to guarding from pain. Range of motion of the hindfoot and ankles within normal limits. MMT 5/5. No gross abnormalities noted. Ankle/foot/toe images: 2 1. Office Procedures Diabetic Foot Exam G9226 - Diabetic Foot Exam Results Reviewed Results Reviewed: Ordered left foot 3 views weightbearing xrays to be performed prior to the next visit. Laboratory Tests 06/19/25 10:09 Hgb A1c (Clinic) 8.3 H Assessment & Plan Assessment & Plan (1) Left foot pain: Code(s): M79.672 - Pain in left foot Category: Medical (2) Uncontrolled type 1 diabetes mellitus with hyperglycemia, with long-term current use of insulin: Code(s): E10.65 - Type 1 diabetes mellitus with hyperglycemia Category: Medical (3) Paresthesia of left foot: Code(s): R20.2 - Paresthesia of skin Category: Medical Plan Patient was informed and verbally consented to the use of an ambient scribe for clinic note documentation during this visit. I discussed with the patient the importance of obtaining an x-ray to evaluate for any structural abnormalities in the left foot, such as bone spurs leading to irritation or compression of soft tissue/nerve. We also talked about the benefits of using soft accommodative insoles and diabetic shoes to reduce foot pain and cramping. I advised the patient to avoid walking barefoot to prevent exacerbation of symptoms and provided a prescription for diabetic shoes and inserts. Educated patient affects of diabetes to the feet. Patient is to continue monitoring her feet daily. Advised patient to wear supportive shoe gear. 1. Diabetes Mellitus - Continue monitoring blood glucose levels and maintain current management plan as per PCP. - Provided patient with a Prescription for diabetic shoes and inserts to prevent foot complications. 2. Foot Pain And Cramping - Ordered an x-ray of the left foot to rule out bone spur or other structural abnormalities. - Recommend soft accommodative insoles to alleviate symptoms. Patient is to return to the office in 3 weeks for re-evaluation of symptoms. Orders: Orders 2 XR foot LT min 3V Today M79.672 - Pain in left foot Medications: New 2 [diabetic shoes] Please provide a pair of diabetic shoes and inserts 1 ea 0RF Diabetic sensitivity to the left foot E10.65 - Type 1 diabetes mellitus with hyperglycemia, M79.672 - Pain in left foot, R20.2 - Paresthesia of skin Coding Level of Care Code New Pt Level 4 (00815) Diagnoses Left foot pain M79.672 Uncontrolled type 1 diabetes mellitus with hyperglycemia, with long-term current use of insulin E10.65 Paresthesia of left foot R20.2 CPT Codes Diabetic Foot Exam - CPT: G9226 - Diabetic Foot Exam ([id number]) Time Spent (min) 53
--- OUTSIDE RECORDS SUMMARY | 2025-07-01 11:57 | XMS_ITS | Clinical Summary ---
Author Organization [facility] it Address [address] [place] [address] Care Team Providers Care Air Motor Repairer Name Role Phone Unavailable Primary Care Provider [...] Smear 01/17/2009 Depression Screening 10/15/2024 COVID-19 Vaccine ( - 2023-2 5 season) 2025 Influenza Vaccine (#1) 2025 [...]
== END 2025-07-01 10:21 | disposition home or self-care (01) ==
LOC: HO.HPODS 09:58
PROVIDERS: PCP Internal Medicine; Visit Provider Student in an Organized Health Care Education/Training Program
DX: M79.672 Pain in left foot (principal); E10.65 Type 1 diabetes mellitus with hyperglycemia; R20.2 Paresthesia of skin
CPT/HCPCS: 99204; G9226

== ENCOUNTER → 2025-07-01 09:58 | Outpatient (BNVA) | payer OTHER, SELFPAY | PROVIDERS: PCP Internal Medicine; Visit Provider Student in an Organized Health Care Education/Training Program | DX: E10.65 Type 1 diabetes mellitus with hyperglycemia (principal); M79.672 Pain in left foot; R20.2 Paresthesia of skin | CPT/HCPCS: 99202 ==

== ENCOUNTER 2025-07-07 12:20 | Outpatient (REF) | payer OTHER, SELFPAY ==
[2025-07-07 13:19] LABS: Hemoglobin A1C 216.3062 umol/L; Total Hemoglobin (HGBA1C) 3485.6912 umol/L
[2025-07-07 13:53] LABS: Alanine Aminotransferase 10 U/L (0-31); Albumin Level 4.2 g/dL (3.5-5.0); Alkaline Phosphatase 82 U/L (39-117); Anion Gap 10 (12-20); Aspartate Amino Transferase 28 U/L (5-31); Blood Urea Nitrogen 8 mg/dL (9-16); Calcium 8.8 mg/dL (8.4-10.2); Carbon Dioxide 27 mmol/L (22-29); Chloride 106 mmol/L (96-108); Cholesterol 148 mg/dL (<200); Estimated Glomerular Filt Rate > 60; HDL Cholesterol 41 mg/dL (>40); Potassium 4.1 mmol/L (3.3-5.1); Sodium 139 mmol/L (135-145); Total Protein 6.7 g/dL (6.5-8.0); Triglycerides 155 mg/dL (<150)
--- OUTSIDE RECORDS SUMMARY | 2025-07-07 15:14 | XMS_ITS | Clinical Summary ---
Author Organization [facility] it Address [address] [place] [address] Care Team Providers Care Qa Developer Name Role Phone Unavailable Primary Care Provider [...]
== END 2025-07-07 12:21 | disposition home or self-care (01) ==
LOC: HO.10HDL 12:20
PROVIDERS: Visit Provider Internal Medicine
DX: F17.201 Nicotine dependence, unspecified, in remission (principal); Z00.00 Encounter for general adult medical examination without abnormal findings; B37.32 Chronic candidiasis of vulva and vagina; E10.40 Type 1 diabetes mellitus with diabetic neuropathy, unspecified; K50.918 Crohn's disease, unspecified, with other complication
CPT/HCPCS: 36415; 80053; 80061; 82043; 82570; 83036

== ENCOUNTER 2025-07-20 14:32 | Outpatient (REF) | payer OTHER, SELFPAY ==
--- OUTSIDE RECORDS SUMMARY | 2025-07-20 16:57 | XMS_ITS | Clinical Summary ---
Author Organization [facility] it Address [address] [place] [address] Care Team Providers Care Kitchen Utility Associate Name Role Phone Unavailable Primary Care Provider [...] Cervical Cancer Screening: P ap Smear 01/17/2009 HPV Vaccines (1 - 3-dose SCD M series) 01/17/2015 Depression Screening 10/15/2024 COVID-19 Vaccine ( - 2023-2 5 season) 2025 Influenza Vaccine (#1) 2025 RSV Immunization Adult Patie nts (1 - 1-dose 75+ series) 01/17/2063 HIB Vaccines Aged Out No longer eligi [...]
== END 2025-07-20 14:33 | disposition home or self-care (01) ==
LOC: HO.HMGCX 14:32
PROVIDERS: PCP Internal Medicine; Visit Provider Student in an Organized Health Care Education/Training Program
DX: Z13.89 Encounter for screening for other disorder (principal)

== ENCOUNTER 2025-07-20 14:58 | Outpatient (REF) | payer OTHER, SELFPAY ==
--- NOTE | ~2025-07-20 | XR_ITS ---
EXAMINATION: XR FOOT, LEFT CLINICAL INFORMATION: M79.672 - Pain in left foot COMPARISON: None available. TECHNIQUE: 3 views of the left foot. FINDINGS: No visible acute fracture or dislocation. Alignment is anatomic. Joint spaces are maintained. No erosions. No abnormal soft tissue calcification. XR/XR foot LT min 3V IMPRESSION: No radiographic evidence of acute osseous findings. Electronically signed by: Mikey Molina MD 07/20/2025 03:42 PM EDT
== END 2025-07-20 14:59 | disposition home or self-care (01) ==
LOC: HO.XRAY 14:58
PROVIDERS: PCP Internal Medicine; Visit Provider Student in an Organized Health Care Education/Training Program
DX: M79.672 Pain in left foot (principal)
CPT/HCPCS: 73630

== ENCOUNTER → 2025-07-20 15:02 | Outpatient (BNV) | payer OTHER, SELFPAY | PROVIDERS: PCP Internal Medicine; Visit Provider Radiology Diagnostic Ultrasound | DX: M79.672 Pain in left foot (principal) | CPT/HCPCS: 73630 ==

== ENCOUNTER 2025-07-21 08:30 | Outpatient (AMB) | payer OTHER, SELFPAY ==
--- NOTE | 2025-07-21 08:34 | A.OFFVIS_ITS ---
Vital Signs 07/21/25 08:39 Height 5 ft Weight 130 lb BMI 25.4 Intake Visit Reasons: for left foot sensitivity/cramping & xrays Intake Note: Cris is a 35 year old female who presents today for a follow up of her Bilateral Foot Pain & Cramping. At her last visit Xrays were ordered and soft inserts were recommended. Pt reports occasional pain in the ball of her left foot and she notes twitching of her left hallux. She mentions the soft inserts had helped relieve her pain symptoms while ambulating. Left foot X-ray IMPRESSION: No radiographic evidence of acute osseous finding Allergies hydromorphone Allergy (Unknown, Verified 07/21/25 08:39) Unknown infliximab (From Remicade) Allergy (Unknown, Verified 07/21/25 08:39) Unknown sulfamethoxazole (From Bactrim) Allergy (Unknown, Verified 07/21/25 08:39) Unknown trimethoprim (From Bactrim) Allergy (Unknown, Verified 07/21/25 08:39) Unknown Medication List - Last Reconciled 07/21/25 by Rajwinder Bower DPM acetone (urine) test (Ketone Urine Test strips) qid for glucose over 250, nausea or vomiting albuterol sulfate 90 mcg/actuation (Ventolin HFA) 1 puff inhalation QID PRN atorvastatin 10 mg PO DAILY Baqsimi 3 mg/actuation (glucagon) 3 mg intranasal ONCE PRN 30 days MDD 6 mg NS blood sugar diagnostic (FreeStyle Lite Strips) As directed prn sensor failure, confirm glucose up to qid blood-glucose meter (FreeStyle Lite Meter kit) As for use with test strips blood-glucose sensor (Dexcom G6 Sensor device) As directed change every 10 days blood-glucose transmitter (Dexcom G6 Transmitter device) As directed every 3 months blood-glucose,canvas shrinker,cont (Dexcom G6 Boiler Operator) As directed buprenorphine-naloxone 2-0.5 mg (Suboxone) 1 film sublingual DAILY buprenorphine-naloxone 8-2 mg (Suboxone) 10 mg sublingual DAILY buspirone 15 mg PO TID [diabetic shoes Please provide a pair of diabetic shoes and inserts] fluconazole 150 mg PO QWEEK insulin degludec (Tresiba FlexTouch U-100 insulin) 32 units (0.32 mL) subcut ONCE PRN 30 days MDD 32 insulin lispro DIFFUSE UP TO 80 UNITS PER DAY VIA INSULIN PUMP SUBCUTANEOUSLY DAILY 30 days NS insulin pump cart,auto,BT,G6/7 (Omnipod 5 G6-G7 Pods (Gen 5) subcutaneous cartri dge) change every 3 days insulin pump cart,auto,BT-cntr (Omnipod 5 G6 Intro Kit (Gen 5) subcutaneous cartridge with controller) As directed insulin syringe-needle U-100 As directed up to quid for pump failure or glucose correction lancets (FreeStyle Lancets) 4 times a day prn sensor failure or to confirm glucose lidocaine 5% 2 patches topical DAILY loratadine 10 mg PO DAILY norethindrone (contraceptive) 0.35 mg PO DAILY omeprazole 40 mg PO ondansetron HCl 4 mg PO Q8H PRN pen needle, diabetic (BD Yoselyn 2nd Gen Pen Needle) As directed tid prn pump failure pregabalin 150 mg PO BID HPI Comments Details: The patient is a 35-year-old female presenting for follow-up of left foot pain. Patient states she has an appointment at the end of the month to obtain her shoes and inserts but in the meantime has obtained shoes with accommodative insoles which she states has provided some relief. She reports difficulty in performing certain movements with her foot, particularly when attempting to plantarflex the toes which results in pain. The pain is localized to the left forefoot, with no significant issues reported on the right side. Patient states her blood glucose has been within normal limits. She denies any other pedal concerns. Denies any current nausea, vomiting, fever, or chills. [facility] Medical History (Updated 07/01/25 @ 10:16 by Rajwinder Bower DPM) Paresthesia of left foot Left foot pain Insulin pump in place Dyslipidemia due to type 1 diabetes mellitus Neuropathy Crohn disease Uncontrolled type 1 diabetes mellitus with hyperglycemia, with long-term current use of insulin Surgical History Hx of section Hx of resection of small bowel Family History Mother History of hypertension Hyperlipidemia Father History of hypertension Social History Alcohol intake: current Alcohol intake frequency: does not drink Patient Tobacco Use Status: Never used Tobacco Review of Systems Const Details: - Neurological: Reports intermittent cramping and sensitivity in the left foot for four years. - Musculoskeletal: Reports pain in the left foot when performing certain movements. Denies pain on palpation of the ball or top of the foot. - Endocrine: Reports improved blood glucose control with levels between 90 and 150 mg/dL. All systems reviewed & are unremarkable except as noted in HPI and below Physical Exam Vital Signs: BMI result Body Mass Index 25.4 Extrem Other: Left lower extremity focused foot exam: Derm: No open lesions abrasions or wounds noted. Skin supple and turgor intact. No clinical signs of infection. Toenails noted to be within normal length and thickness. Vasc: DP/PT pulses palpable. Capillary refill time less than 3 seconds. Temperature gradient warm to warm. Pedal hair absent. No varicosities noted. No edema noted. Neuro: Protective sensation is grossly intact upon monofilament testing. MSK: Mild pain noted with plantarflexion of the forefoot. No pain with remaining ROM of the forefoot. No sensitivity noted to the plantar aspect of the left 1st metatarsal upon palpation. Range of motion of the left forefoot slightly reduced in comparison to the right foot due to guarding from pain. Range of motion of the hindfoot and ankles within normal limits. MMT 5/5. No gross abnormalities noted. Results Reviewed Results Reviewed: Podiatry read of left foot three-view x-rays (07/20/2025): No acute fractures or dislocations noted. Joint space within normal limits diffusely throughout the foot. No osteophytic changes noted. Left foot three-view x-rays (07/20/2025): FINDINGS: No visible acute fracture or dislocation. Alignment is anatomic. Joint spaces are maintained. No erosions. No abnormal soft tissue calcification. IMPRESSION: No radiographic evidence of acute osseous findings. Laboratory Tests 06/19/25 10:09 Hgb A1c (Clinic) 8.3 H Assessment & Plan Assessment & Plan (1) Left foot pain: Code(s): M79.672 - Pain in left foot Category: Medical (2) Uncontrolled type 1 diabetes mellitus with hyperglycemia, with long-term current use of insulin: Code(s): E10.65 - Type 1 diabetes mellitus with hyperglycemia Category: Medical (3) Paresthesia of left foot: Code(s): R20.2 - Paresthesia of skin Category: Medical Plan Patient was informed and verbally consented to the use of an ambient scribe for clinic note documentation during this visit. I discussed with the patient the use of metatarsal pads and exercises to alleviate left forefoot pain and improve range of motion. We also talked about the prescription of lidocaine patches for pain management and the importance of using diabetic shoes and inserts once they are available. I advised a follow-up in a few months to evaluate the treatment's effectiveness and consider physical therapy if necessary. - Recommend use of metatarsal pads to alleviate pressure on the ball of the foot. Provided patient with metatarsal pads. - Provided patient with exercises to improve range of motion, including towel pick-ups and rolling a frozen water bottle under the foot. - Prescribed lidocaine patches for pain management, to be used as needed. - Continue monitoring blood glucose levels and maintain current management plan as per PCP. - Recommend continuation of soft accommodative insoles to alleviate symptoms. Follow-up in 3 months to assess the effectiveness of the interventions and consider physical therapy if symptoms persist. Medications: New lidocaine 5% leave on most painful area for up to 12 hrs 2 patches topical DAILY 30 ea 0RF Left foot pain M79.672 - Pain in left foot Coding Level of Care Code Est Pt Level 4 (93954) Diagnoses Left foot pain M79.672 Uncontrolled type 1 diabetes mellitus with hyperglycemia, with long-term current use of insulin E10.65 Paresthesia of left foot R20.2 Time Spent (min) 45
[2025-07-21 08:39] VITALS: BMI 25.4
--- OUTSIDE RECORDS SUMMARY | 2025-07-21 09:04 | XMS_ITS | Clinical Summary ---
Author Organization [facility] it Address [address] [place] [address] Care Team Providers Care Director Talent Acquisition Name Role Phone Unavailable Primary Care Provider [...]
== END 2025-07-21 08:54 | disposition home or self-care (01) ==
LOC: HO.HPODS 08:30
PROVIDERS: PCP Internal Medicine; Visit Provider Student in an Organized Health Care Education/Training Program
DX: M79.672 Pain in left foot (principal); E10.65 Type 1 diabetes mellitus with hyperglycemia; R20.2 Paresthesia of skin
CPT/HCPCS: 99214

== ENCOUNTER → 2025-07-21 08:30 | Outpatient (BNVA) | payer OTHER, SELFPAY | PROVIDERS: PCP Internal Medicine; Visit Provider Student in an Organized Health Care Education/Training Program | DX: M79.672 Pain in left foot (principal); E10.65 Type 1 diabetes mellitus with hyperglycemia; R20.2 Paresthesia of skin | CPT/HCPCS: 99212 ==

== ENCOUNTER 2025-08-25 14:31 | Outpatient (AMB) | payer OTHER, SELFPAY ==
--- NOTE | 2025-08-25 14:34 | MHC.OFFVIS ---
Vital Signs 08/25/25 14:36 Height 5 ft Weight 125 lb 10.616 oz BMI 24.5 BP 124/76 Blood Pressure Location Rt brachial Position Sitting Pulse 70 Pulse Source Pulse Oximeter Intake Visit Reasons: T1DM Intake Note: Patient presents today for a follow-up on Type 1 Diabetes Mellitus: Patient last seen DR Yamile Haider MD. Last Diabetic Eye exam: Has an appt coming up in September Last Podiatry Exam: [place]21/[place] [facility] [place], Rajwinder Cortez. Most recent HbA1c: 7.8%, 07/07/2025 Random Glucose- 135 mg/dL, Today Band Instrument Repairer Required: No Accompanied by: Self / Same As Patient Allergies hydromorphone Allergy (Unknown, Verified 08/25/25 14:46) Unknown infliximab (From Remicade) Allergy (Unknown, Verified 08/25/25 14:46) Unknown sulfamethoxazole (From Bactrim) Allergy (Unknown, Verified 08/25/25 14:46) Unknown trimethoprim (From Bactrim) Allergy (Unknown, Verified 08/25/25 14:46) Unknown HPI Comments Details: 35 YO F with type 1 diabetes mellitus who is here for follow up today. Last seen She is on an Omnipod 5 with Dexcom G6, with Humalog U 100 insulin. 12/05/24 A1c of 8.3% 03/19/2025 8.2%. 06/19/2025 POC 8.3% History of type 1 diabetes mellitus. Initially diagnosed with T1DM BANDAR 02/2019 when presented with hyperglycemia Was initially started on treatment with metformin . She was started on insulin pump fall 2022. Pre pump A1C was 11.4 %. Back up pump failure Plan Lantus 30 units with premeal humalog Has backup Lantus Has a insulin syringes Has urine ketone strips Has nasal Baqsimi spray Basal rate(s) (units/hour) : 12 AM to 6 AM 1.0 units / hr 06:00 to 12 am 1.5 Bolus setting Insulin Carbohydrate Ratio (s) 12 AM to 6 AM 1:12 6 AM to 12 PM 1: 6 12:AM to 12 AM 1: 6 Correction Factor / Sensitivity Factor 12 AM to 12 AM ??1:65 Active Insulin Time:? 3 hours Target(s): 12 AM to 6 AM 130 mg/dL 06:00 to 12 AM 130 mg/dL correct above 130 mg/dL She is working with a farm adviser Crohn's is doing much better on Skyrizi. Treats lows with OJ . Checks sugar after to ensure it is rising. Family history of autoimmunity . Sister has Graves Dx No retinopathy: has scheduled appt for Has neuropathy, symptoms are: numbness, tingling, pain no cramping. She is followed by neurology c/o cramping in her left foot , Saw psychology teacher 1 month ago, will see again in No nephropathy, Not on ION/ARB. 11/13/24 eGFR >60 microalbumin 14 Has HLD, on atorvastatin 10 mg daily. LDL. 107 01/2024 Denies history of CAD. Had diabetes education. Diet/Carb counting: yes Prior episodes of DKA: April 2024 Had normal sugars but felt poorly and tested mod ketones->Referred to ER by our office and was admitted to the hospital Denies prior severe episodes of hypoglycemia requiring help or hospitalization. Had recent elevated liver function tests AST 76 ALT 108 October 2024 sees GI provider at [facility] [phone] [facility] screen Fibrosis-4 (Fib-4) Index for liver fibrosis (calculated on lab work done: 10/2024) 0.84 points Advanced fibrosis excluded Approximate Fibrosis stage Chela 0-1 *Use with caution in patients <35 or >65 years old, as the score has been shown to be less reliable in these patients. Prior Imaging: None available in EHR Action Plan: She is followed by GI medicine Dr. Esteves at [facility] lft's had been elevated in october Per patient repeat through [facility] were in normal range, Interval history: Doing well overall She had some issues with the pods over the weekend but she was OK with the back up plan. No recent admissions for DKA No recent changes in pump settings Seen by danilo CONTRERAS seems to be helpful She is bolusing more consistently now She usually has dinner between 1-2pm and dinner 6-7pm. She sometimes drinks juice at night. Carb counting is not accurate but is mostly is due to fear of hypoglycemia She reports nighttime episodes of hypoglycemia by CGM and FS Patient did not have blood work Physical exam General: Well appearing. NAD. Neck/Thyroid: Thyroid not palpable, no nodules. CV: RRR, no murmur. No edema. Resp:Lungs clear to auscultation bilaterally Abdomen: Soft, nontender. nondistended Extremities/Neuro: No weakness or tremor of outstretched hands Laboratory Tests 01/15/24 01/15/24 11/13/24 07:20 07:25 23:36 Hgb 12.4 Hct 37.0 Plt Count 314 Creatinine 0.58 Estimated GFR > 60 Glucose (Clinic) Hgb A1c (Clinic) AST 76 H ALT 108 H Triglycerides 209 H Cholesterol 179 LDL Cholesterol, Calc 107 H HDL Cholesterol 31 L TSH 1.32 Free T4 0.80 Urine Creatinine 123.19 Urine Microalbumin 14.0 Microalb/Creat Ratio 11.3 03/19/25 06/19/25 10:50 10:06 Hgb Hct Plt Count Creatinine Estimated GFR Glucose (Clinic) 212 H Hgb A1c (Clinic) 8.2 H AST ALT Triglycerides Cholesterol LDL Cholesterol, Calc HDL Cholesterol TSH Free T4 Urine Creatinine Urine Microalbumin Microalb/Creat Ratio CGM data: interpretation: Postprandial and nocturnal hyperglycemia, possibly related to inaccurate carb intake due to fear of hypoglycemia and high blood glucose targets or elevated blood glucose at bedtime. [facility] Medical History (Updated 07/01/25 @ 10:16 by Rajwinder Bower DPM) Paresthesia of left foot Left foot pain Insulin pump in place Dyslipidemia due to type 1 diabetes mellitus Neuropathy Crohn disease Uncontrolled type 1 diabetes mellitus with hyperglycemia, with long-term current use of insulin Surgical History Hx of section Hx of resection of small bowel Family History Mother History of hypertension Hyperlipidemia Father History of hypertension Social History Alcohol intake: current Alcohol intake frequency: does not drink Patient Tobacco Use Status: Never used Tobacco Physical Exam Vital Signs: Last Vital Signs Pulse 70 08/25/25 14:36 BP 124/76 08/25/25 14:36 BMI result Body Mass Index 24.5 Office Procedures Glucose Monitoring Details Details: See HPI 93504 - Glucose Monitoring, continuous Procedure code (CPT) selection complete Results Reviewed Results Reviewed: Laboratory Last Values Glucose (Clinic) 135 mg/dL (60-115) H 08/25/25 14:39 Assessment & Plan Assessment & Plan (1) Uncontrolled type 1 diabetes mellitus with hyperglycemia, with long-term current use of insulin: Code(s): E10.65 - Type 1 diabetes mellitus with hyperglycemia Category: Medical Plan: 35-year-old patient with type 1 diabetes mellitus with gastroparesis and neuropathy on an Omnipod 5 insulin pump with Dexcom G6 with the Humalog U 100 with the an A1c of 8.3% 06/19/2025 POC which is about stable from March 2025 8.2%. Pre pump her A1cs had historically run 13%. On discussed with the patient and reviewing insulin pump data, it is apparent that the carb input is inaccurate due to patient's fears of hypoglycemia. The patient does report that she sleeps around 20:00, and she is not sure what she is having hyperglycemia at night as she does not eat awake up to it, but we think it could be related to her current high glucose target of 130. She does report though that she is bolusing more consistently now as her GI issues have improved significantly. Patient also run of her pods during the weekend, and she used her backup plan, which seems to have worked to some extent. We discussed the importance of accurate carb input and consistently bolusing prior to meals to better control her disease. She does seems to be doing a better job in all friends, and although she only have a mild improvement in her A1c, this is still an improvement considering all her other issues that have interfered with her diabetes management before. She is having foot pain that have been managed by Podiatry with lidocaine patches, that we consider physical therapy if she does not improve. Plan: -changes made to in insulin pump during this visit: Target 130--> 120 12-6am CR? 6 AM to 12 PM 1: 6 --> 1:5 12:AM? to 12 AM 1: 6--> 1:5 -last eye appointment 2022, she has an appointment on September 2025 -Continue to follow up with Gastroenterology for Crohn's and gastroparesis. -she was unable to have the blood work done prior to this visit due to changes in the schedule, she will have the blood work done soon. -patient was seen by Podiatry on June and July 2025, and will be seen again in September 2025. -new script for pods sent (2) Dyslipidemia due to type 1 diabetes mellitus: Code(s): E10.69 - Type 1 diabetes mellitus with other specified complication; E78.5 - Hyperlipidemia, unspecified Category: Medical Plan: LDL goal would be less than 70 mg/dL. Her LDL was elevated from 2023. No recent lipid panel in the chart. She is on atorvastatin 10 mg daily. Plan: -ordered lipid panel to be done with the next set of labs -continue atorvastatin 10 mg daily (3) Insulin pump in place: Code(s): Z96.41 - Presence of insulin pump (external) (internal) Category: Medical Plan: Back up pump failure Plan Lantus 30 units with premeal humalog Has backup Lantus Has a insulin syringes Has urine ketone strips Has nasal Baqsimi spray Plan I spent 30 minutes in reviewing the record, seeing the patient and documenting in the medical record. Orders: Orders AMB Glucose Monitoring Today E10.65 - Type 1 diabetes mellitus with hyperglycemia Medications: Refilled insulin pump cart,auto,BT,G6/7 (Omnipod 5 G6-G7 Pods (Gen 5) subcutaneous cartridge) change every 3 days 10 ea 12RF Coding Level of Care Code Tele Est Pt Level 4 (09598) Diagnoses Uncontrolled type 1 diabetes mellitus with hyperglycemia, with long-term current use of insulin E10.65 Dyslipidemia due to type 1 diabetes mellitus E10.69; E78.[address] Z96.41 CPT Codes Details - CPT: 19074 - Glucose Monitoring, continuous ([id number])
[2025-08-25 14:36] VITALS: BP 124/76; PULSE 70; BMI 24.5
[2025-08-25 14:48] LABS: Glucose, Whole Blood 135 mg/dL (60-115)
== END 2025-08-25 16:19 | disposition home or self-care (01) ==
LOC: HO.ENCR 14:32
PROVIDERS: PCP Internal Medicine; Visit Provider Student in an Organized Health Care Education/Training Program
DX: E10.65 Type 1 diabetes mellitus with hyperglycemia (principal); E10.69 Type 1 diabetes mellitus with other specified complication; E78.5 Hyperlipidemia, unspecified; Z96.41 Presence of insulin pump (external) (internal)
CPT/HCPCS: 99214

== ENCOUNTER → 2025-08-25 14:31 | Outpatient (BNVA) | payer OTHER, SELFPAY | PROVIDERS: PCP Internal Medicine; Visit Provider Student in an Organized Health Care Education/Training Program | DX: E10.65 Type 1 diabetes mellitus with hyperglycemia (principal) | CPT/HCPCS: 82947; 95250 ==